=== PATIENT | male | born 1960 | race African-American/Black ===

== ENCOUNTER 2017-05-26 13:07 | Inpatient (IN) | payer OTHER ==
[2017-05-26 13:20] VITALS: BMI 21.6
[2017-05-26] MEDS ORDERED: ALBUTEROL SO4 2.5/IPRATROPIUM 0.5 INH SOL 3 ML VIAL.NEB. NEB ONE ×2 (13:26→14:17)
[2017-05-26] MEDS ORDERED: methylPREDNISolone NA SUCC 125 MG/2 ML VIAL IVPUSH ONE (13:26)
--- NOTE | 2017-05-26 13:26 | PDOC ---
History of Present Illness - General Chief Complaint: Shortness of Breath Stated Complaint: SOB Time Seen by Provider: 05/26/17 13:25 - History of Present Illness Initial Comments: 05/26/17 13:33 The patient is a 56 year old male with a history of DM, Lung CA who presents for evaluation of SOB and lower abdominal pain. The patient reports a 1 week history of worsening SOB with associated non-productive cough. He states that he was using his inhaler and home nebulizer with minimal relief in his symptoms , but ran out of medication 3 days ago. He reports that he currently on chemotherapy for his cancer with his last chemo 2 weeks ago. He also reports lower abdominal pain with an "bump" in his lower abdomen. He reports continued bowel movements and denies any nausea or vomiting. He denies fevers, chills, chest pain, or changes with urination or bowel movements. Past History - Past Medical History Allergies/Adverse Reactions: Allergies Allergy/AdvReac Type Severity Reaction Status Date / Time iodine Allergy Verified 03/16/16 09:13 Home Medications: Ambulatory Orders Albuterol Sulfate Inhaler - [Ventolin Hfa Inhaler -] 1 - 2 inh PO QID 05/26/17 Diazepam 10 mg PO DAILY 05/26/17 FENTANYL 12mcg PATCH [DURAGESIC 12mcg PATCH -] 1 each TD Q72H 05/26/17 Gabapentin 300 mg PO BID 05/26/17 Metformin HCl 500 mg PO BID 05/26/17 Omeprazole 20 mg PO DAILY 05/26/17 Oxycodone HCl 10 mg PO DAILY 05/26/17 Asthma: Yes COPD: No Diabetes: Yes - Suicide/Smoking/Psychosocial Hx Smoking History: Unknown if ever smoked Have you smoked in the past 12 months: Yes Number of Cigarettes Smoked Daily: 10 Information on smoking cessation initiated: No 'Breaking Loose' booklet given: 03/16/16 Hx Alcohol Use: No Drug/Substance Use Hx: No Substance Use Type: None Review of Systems - Review of Systems Comments:: 05/26/17 13:37 Constitutional: No fevers, chills, fatigue, malaise HEENT: No Rhinorrhea, nasal congestion, visual changes Cardiovascular: No chest pain, syncope, palpitations, lightheadedness Respiratory: SOB, cough. No Hemoptysis, Gastrointestinal: Abdominal pain. No Nausea, Vomiting, Constipation, Diarrhea, Melena Genitourinary: No Dysuria, Frequency, Urgency, Hesitancy, Hematuria, Flank pain Musculoskeletal: No Myalgia, arthralgia Skin: No rashes, bruising, pallor Neurologic: No Headache, Dizziness, Numbness, Weakness, or Tingling Psychiatric: No Hallucinations. No SI or HI *Physical Exam - Vital Signs Last Vital Signs Temp Pulse Resp BP Pulse Ox 129 H 24 133/82 89 L 05/26/17 13:17 05/26/17 13:17 05/26/17 13:17 05/26/17 13:17 - Physical Exam Comments: 05/26/17 13:39 General Appearance: Nourished. In Mild Apparent Distress HEENT: EOMI, MINDI. No Pharyngeal Erythema, Tonsillar Exudate, Tonsillar Erythema Neck: No Cervical Lymphadenopathy Respiratory/Chest: Diffuse bilateral crackles and expiratory wheezing noted on exam. No Rhonchi, Cardiovascular: Regular Rhythm, Regular Rate. No Murmur, Gallops, Rubs Gastrointestinal/Abdominal: Normal Bowel Sounds, Soft. Palpable right inguinal hernia with tenderness to palpation. No Guarding, Rebound, Musculoskeletal: No CVA Tenderness Extremity: Normal Capillary Refill Integumentary: Normal Color, Dry, Warm Neurologic: Fully Oriented, Alert, Normal Mood/Affect, Normal Response, ED Treatment Course - LABORATORY CBC & Chemistry Diagram: 05/26/17 11:40 05/26/17 11:40 Medical Decision Making - Medical Decision Making 05/26/17 13:40 The patient is a 56 year old male with a history of DM, Lung CA who presents for evaluation of SOB and lower abdominal pain. Differential includes but is not limited to: Asthma exacerbation, COPD exacerbation, pneumonia, hernia, infectious, metabolic derangement. Given the patient's physical exam, it is likely he is experiencing either an asthma excerbation or a COPD exacerbation. He also has an apparent inguinal hernia and could have an incacerated hernia contributing to his symptoms. We will obtain a cbc, cmp, bnp, lactate, chest plain film, and abdomen ct to evaluate further. We will treat the patient with iv fluids, solumedrol, and duonebs in the meantime. We will continue to monitor and reassess. *DC/Admit/Observation/Transfer Diagnosis at time of Disposition: COPD exacerbation Pneumonia Qualifiers: Pneumonia type: due to unspecified organism Laterality: unspecified laterality Lung location: unspecified part of lung Qualified Code(s): J18.9 - Pneumonia, unspecified organism - Discharge Dispostion Condition at time of disposition: Guarded Admit: Yes - Referrals - Patient Instructions - Post Discharge Activity
[2017-05-26] MEDS ORDERED: SODIUM CHLORIDE 1,000 ML IV STA ×2 (13:32→18:20)
--- NOTE | 2017-05-26 13:42 | PDOC ---
Attending Attestation - Resident Resident Name: Teddy Sutherland - ED Attending Attestation I have performed the following: I have examined & evaluated the patient, The case was reviewed & discussed with the resident, I agree w/resident's findings & plan, Exceptions are as noted - HPI HPI: 05/26/17 13:33 56 M with h/o lung CA (currently on chemo, last tx 2 weeks ago), asthma, presenting to ER with SOB x 1 week. Pt states that he feels like he is having an asthma attack. He states that he was using his albuterol pump and nebulizers earlier this week but ran out about 2 days ago. Pt denies any CP. Denies F/C. Endorses productive cough. Pt also reports that he is having pain in his R groin that started also about a week ago. He also noticed a protrusion in the same area. States that the pain is worse with standing and coughing. Denies any abdominal distention, denies N/ V. Is passing flatus and stool as normal. - Physicial Exam PE: 05/26/17 13:42 "GENERAL: Awake, alert, and fully oriented, in no acute distress HEAD: No signs of trauma EYES: PERRLA, EOMI, sclera anicteric, conjunctiva clear ENT: Auricles normal inspection, hearing grossly normal, nares patent, oropharynx clear without exudates. Moist mucosa NECK: Nontender, no stepoffs, Normal ROM, supple, no lymphadenopathy, JVD, or masses LUNGS: +expiratory wheezes, diffuse rales, no rhonchi HEART: Regular rate and rhythm, normal S1 and S2, no murmurs, rubs or gallops ABDOMEN: Soft, nontender, normoactive bowel sounds. No guarding, no rebound. No masses : + R inguinal mass tender to palpation, not able to reduce at bedside, no scrotal mass or tenderness EXTREMITIES: Normal range of motion, no edema. No clubbing or cyanosis. No cords, erythema, or tenderness NEUROLOGICAL: Cranial nerves II through XII intact. 5/5 strength and sensation in all extremities, Normal speech, normal gait SKIN: Warm, Dry, normal turgor, no rashes or lesions noted. " - Medical Decision Making 05/26/17 13:43 56 M with lung CA, asthma presenting to ER with SOB x 1 week. Wheezing on exam, consistent with asthma exacerbation. Pt also complaining of R inguinal pain, found to have mass consistent with inguinal hernia. Possible incarcerated hernia. No obstructive symptoms or clinical signs of obstruction. - Labs - CXR - CTAP - Nebs, steroids 05/26/17 17:31 CXR with consolidation. Pt started on HCAP coverage with vanc/zosyn/azithro. Pending CTAP to r/o incarcerated hernia. Lactate negative. Admitted to [facility].
[2017-05-26] MEDS ORDERED: methylPREDNISolone NA SUCC 125 MG/2 ML VIAL ONE (14:02)
[2017-05-26 14:32] LABS: BASO % 0.7 % (0-2.0); EOS % 0.2 % (0-4.5); HEMATOCRIT 27.8 % (35.4-49); HEMOGLOBIN 8.4 GM/dL (11.7-16.9); LYMPH % 6.2 % (8-40); MCH 25.5 pg (25.7-33.7); MCHC 30.1 g/dl (32.0-35.9); MEAN CELL VOLUME 84.7 fl (80-96); MEAN PLT VOLUME 7.5 fl (7.5-11.1); MONO % 5.6 % (3.8-10.2); NEUT % 87.3 % (42.8-82.8); PLATELET COUNT 147 K/MM3 (134-434); RBC 3.29 M/mm3 (4.00-5.60); RDW 26.4 % (11.9-15.9); WHITE BLOOD COUNT 12.5 K/mm3 (4.0-10.0)
[2017-05-26 14:48] LABS: ADD RBC MORPHOLOGY YES
[2017-05-26 14:57] LABS: ALBUMIN 2.3 g/dl (3.4-5.0); ANION GAP 7 (8-16); BILIRUBIN,TOTAL 0.3 mg/dL (0.2-1.0); BLOOD UREA NITROGEN 15 mg/dL (7-18); CALCIUM 7.5 mg/dL (8.5-10.1); CHLORIDE 108 mmol/L (98-107); CO2 28 mmol/L (21-32); CREATININE 0.6 mg/dL (0.7-1.3); GLUCOSE,RANDOM 78 mg/dL (74-106); LIPASE 34 U/L (73-393); SGOT/AST 13 U/L (15-37); SGPT/ALT 11 U/L (12-78); SODIUM 143 mmol/L (136-145); TOT PROT 6.3 g/dl (6.4-8.2)
[2017-05-26 14:59] LABS: ALK PHOS 84 U/L (45-117)
[2017-05-26] MEDS ORDERED: PIPERACILLIN/TAZOB 3.375 GM 50 ML IVPB ONE (17:10)
[2017-05-26] MEDS ORDERED: AZITHROMYCIN IVPB 500 MG in DEXTROSE 5%-WATER - 250 ML IVPB ONE (17:10)
[2017-05-26] MEDS ORDERED: VANCOMYCIN 1,250 MG in DEXTROSE 5%-WATER - 250 ML IVPB ONE (17:10)
--- NOTE | 2017-05-26 18:18 | PN ---
Teaching Attending Note Name of Resident: Linda June ATTENDING PHYSICIAN STATEMENT I saw and evaluated the patient. I reviewed the resident's note and discussed the case with the resident. I agree with the resident's findings and plan as documented. 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 Has been using his inhalers with no improvement. Denies any fevers, recent URI like illness, sick contacts, antibiotics, recent travel or hospitalization. Also report right sided groin pain for last 1 week, dull mainly with coughing, exertion or movements. no nausea, vomiting, abdominal pain or diarrhea, no prior h/o inguinal hernia. Currently feels better after receiving nebs and steroids in the ED. 12 point ROS neg except above, has been doing well otherwise. OBJECTIVE: Vital Signs Period Temp Pulse Resp BP Sys/Perales Pulse Ox Last 24 Hr 108-129 22-24 133/82 89-92 Intake & Output 05/23/17 05/24/17 05/25/17 05/26/17 23:59 23:59 23:59 23:59 Weight 142 lb GENERAL: Awake, alert, and fully oriented, no use of acessory muscles of respiration. HEAD: Normal with no signs of trauma. EYES: Pupils equal, round and reactive to light, extraocular movements intact, sclera anicteric, conjunctiva clear. No lid lag. EARS, NOSE, THROAT: Ears normal, nares patent, oropharynx clear without exudates. Mildly dry mucous membrane NECK: Normal range of motion, supple, no JVD LUNGS: decreased air entry bilateral with occasional whezing, markedly decreasd breath sounds left base with few rales above the same HEART: S1S2 regular, tachycardic ABDOMEN: Soft, no distended, tenderness right groin area with coughing noted, no bulging in groin or scrotal area noted, no voluntary or involuntary guarding or rigidity, positive bowel sounds MUSCULOSKELETAL: Normal range of motion at all joints. No bony deformities or tenderness. No CVA tenderness. UPPER EXTREMITIES: 2+ pulses, warm, well-perfused. No cyanosis. No clubbing. No peripheral edema. LOWER EXTREMITIES: 2+ pulses, warm, well-perfused. No calf tenderness. No peripheral edema. NEUROLOGICAL: Cranial nerves II-XII intact. Normal speech. Gait deferred PSYCHIATRIC: Cooperative. Good eye contact. Appropriate mood and affect. SKIN: Warm, dry, normal turgor, no rashes or lesions noted, normal capillary refill. Home Medication List Medication Instructions Recorded Confirmed Type Albuterol Sulfate Inhaler - 1 - 2 inh PO QID 05/26/17 05/26/17 History [Ventolin Hfa Inhaler -] Diazepam 10 mg PO DAILY 05/26/17 05/26/17 History FENTANYL 12mcg PATCH [DURAGESIC 1 each TD Q72H 05/26/17 05/26/17 History 12mcg PATCH -] Gabapentin 300 mg PO BID 05/26/17 05/26/17 History Metformin HCl 500 mg PO BID 05/26/17 05/26/17 History Omeprazole 20 mg PO DAILY 05/26/17 05/26/17 History Oxycodone HCl 10 mg PO DAILY 05/26/17 05/26/17 History Laboratory Results - last 24 hr 05/26/17 05/26/17 05/26/17 11:40 11:40 14:18 WBC 12.5 H D RBC 3.29 L D Hgb 8.4 L D Hct 27.8 L D MCV 84.7 MCH 25.5 L D MCHC 30.1 L RDW 26.4 H Plt Count 147 D MPV 7.5 D Neutrophils % 87.3 H D Lymphocytes % 6.2 L D Monocytes % 5.6 Eosinophils % 0.2 D Basophils % 0.7 Sodium 143 Potassium 4.0 Chloride 108 H Carbon Dioxide 28 Anion Gap 7 L BUN 15 Creatinine 0.6 L D Creat Clearance w eGFR > 60 Random Glucose 78 D Lactic Acid 1.0 Calcium 7.5 L Total Bilirubin 0.3 D AST 13 L ALT 11 L D Alkaline Phosphatase 84 D B-Natriuretic Peptide 165.50 H Total Protein 6.3 L Albumin 2.3 L D Lipase 34 L CXR- LLL consolidation with small pleural effusion EKG sinus tach 115, no acute ST-T changes ASSESSMENT AND PLAN: 56 yom with metastatic lung carcinoma to spine/pelvis on chemotherapy, asthma, prior heavy smoker, diet controlled DM, admitted with LLL PNA with pleural effusion, acute asthma exacerbation with hypoxia, right groin pain. -Acute LLL PNA with pleural effusion, cannot r/o post obstructive PNA -Acute asthma/?COPD exacerbation PNA with hypoxia -Sepsis -Right groin pain, ?hernia vs musculoskeletal from excessive coughing -Metastatic Lung carcinoma to spine/pelvis -Diet controlled DM Plan: Given immunocompromised state and possible post obstructive PNA, broad spectrum antibiotic coverage with zosyn/vancomycin. Atypical Coverage with Azithromycin. Blood/sputum cultures, influenza swab, urine PNA studies. Check CT Chest non contrast (given allergy to iodine, and current presentatation suggestive of infectious process/Asthma and less likely PE) ID consult, case discussed with Dr. Plaza. Solumedrol 40 mg IV q8h, standing nebs (monitor tachycardia). oxygen supplementation. Check ABG CT A/P to assess right groin pain, serial abdominal exams. Check urinalysis. Oncology consult. Diabetic diet, ISS. GI/DVTPPX, protonix/heparin code status: full, wants his Ronda Rivas to be HCP. Dispo anticipate atleast 3-4 midnight stays, given need for IV antibiotics, steroids, respiratory treatment and close hemodynamic monitoring and additional treatment. Admit to inpatient. Plan discussed with patient in detail, all questions answered. Total admit time 55 min.
[2017-05-26] MEDS ORDERED: ALBUTEROL SO4 0.083% IH SOL 2.5 MG/3 ML VIAL.NEB. NEB PRN (18:26)
[2017-05-26] MEDS ORDERED: AZITHROMYCIN IVPB 250 ML IVPB ONE (18:29)
[2017-05-26] MEDS ORDERED: SODIUM CHLORIDE 1,000 ML IV SCH (18:30)
[2017-05-26 18:33] LABS: ANISOCYTOSIS 3+
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
[2017-05-26] MEDS ORDERED: FENTANYL PATCH WASTE TD PRN (20:00)
[2017-05-26] MEDS ORDERED: fentaNYL 12mcg/hr PATCH.TD72 TD SCH (20:00)
[2017-05-26] MEDS: SODIUM CHLORIDE 1,000 ML IV SCH (21:37)
[2017-05-26] MEDS: PIPERACILLIN/TAZOB 3.375 GM 3.375 GM in DEXTROSE 5%-WATER - 100 ML IVPB SCH (21:55)
[2017-05-26] MEDS: VANCOMYCIN 1,000 MG in DEXTROSE 5%-WATER - 250 ML IVPB SCH (22:00)
[2017-05-27] MEDS: ALBUTEROL SO4 2.5/IPRATROPIUM 0.5 INH SOL 3 ML VIAL.NEB. NEB SCH ×5 (00:40→23:01)
[2017-05-27] MEDS: methylPREDNISolone NA SUCC 40 MG/1 ML VIAL IVPUSH SCH ×3 (02:11→12:20)
[2017-05-27] MEDS: PIPERACILLIN/TAZOB 3.375 GM 3.375 GM in DEXTROSE 5%-WATER - 100 ML IVPB SCH ×3 (02:39→21:49)
[2017-05-27] MEDS: HEPARIN NA (PORCINE) 5,000 UNITS/ML 1ML VIAL SQ SCH ×4 (06:00→21:51)
[2017-05-27] MEDS: INSULIN SLIDING SCALE (NOVOLOG) 1 VIAL SQ SCH ×4 (06:25→21:56)
[2017-05-27 06:57] LABS: HEMATOCRIT 32.5 % (35.4-49); MCHC 30.9 g/dl (32.0-35.9); MEAN CELL VOLUME 84.1 fl (80-96); MEAN PLT VOLUME 7.8 fl (7.5-11.1); PLATELET COUNT 238 K/MM3 (134-434); RBC 3.86 M/mm3 (4.00-5.60); RDW 26.4 % (11.9-15.9); WHITE BLOOD COUNT 16.3 K/mm3 (4.0-10.0)
[2017-05-27 07:27] LABS: ALBUMIN 2.4 g/dl (3.4-5.0); ANION GAP 6 (8-16); BLOOD UREA NITROGEN 15 mg/dL (7-18); CALCIUM 7.7 mg/dL (8.5-10.1); CHLORIDE 107 mmol/L (98-107); CO2 28 mmol/L (21-32); GLUCOSE,RANDOM 114 mg/dL (74-106); MAGNESIUM 2.2 mg/dL (1.8-2.4); POTASSIUM 4.4 mmol/L (3.5-5.1); SODIUM 141 mmol/L (136-145)
[2017-05-27 07:31] LABS: ALK PHOS 86 U/L (45-117); BILIRUBIN,TOTAL 0.2 mg/dL (0.2-1.0); CREATININE 0.7 mg/dL (0.7-1.3); PHOSPHOROUS 2.5 mg/dL (2.5-4.9); SGOT/AST 15 U/L (15-37); SGPT/ALT 11 U/L (12-78); TOT PROT 6.6 g/dl (6.4-8.2)
[2017-05-27] MEDS ORDERED: PT OWN MED DRAWER 7, Y5N ONE ×4 (09:01→19:52)
[2017-05-27] MEDS: oxyCODONE HCL 5 MG TABLET PO SCH (09:04)
[2017-05-27 09:53] LABS: URINE APPEARANCE CLEAR; URINE BILIRUBIN NEGATIVE (NEGATIVE); URINE BLOOD NEGATIVE (NEGATIVE); URINE COLOR LTYELLOW; URINE GLUCOSE (UA) NEGATIVE (NEGATIVE); URINE KETONE NEGATIVE (NEGATIVE); URINE LEUK ESTERASE NEGATIVE (NEGATIVE); URINE NITRITE NEGATIVE (NEGATIVE); URINE PROTEIN NEGATIVE (NEGATIVE); URINE UROBILINOGEN NEGATIVE mg/dL (0.2-1.0)
--- NOTE | 2017-05-27 10:06 | CON.ID ---
Consult Consult Specialty:: Infectious Disease Reason for Consultation:: PNA - History of Present Illness History of Present Illness: This is a 56 y.o. 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 COPD previously a smoker x 40 yrs presenting with c/o shortness of breath, occasionally productive of whitish sputum. He states that the shortness of breath started about 1 wk ago and has not used his asthma inhaler. Denies fever/chills, hemoptysis. He is also c/o Rt inguinal pain that began 1 wk ago. Denies n/v/d. CXR reveals Lt basilar infiltrate and small pleural effusion. Currently states he is feeling a bit better. 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: No: Alzheimer's, CVA, Dementia, Migraine, Multiple Sclerosis, Peripheral Neuropathy, Parkinson's, Seizure, Syncope, TIA, Vertigo, Other Cardio/Vascular: No: AFIB, Aneurysm, Aortic Insufficiency, Aortic Stenosis, CAD , CHF, Deep Vein Thrombosis, HTN, Hyperlipdemia, [place], Mitral Insufficiency, Mitral Stenosis, Murmur, Pulmonary Hypertension, Other Pulmonary: Yes: Asthma Gastrointestinal: No: Ascites, Cancer, Constipation, Crohn's Disease, Diverticulitis, Diverticulosis, Esophageal Varices, Gastritis, GERD, GI Bleed, Hemorrhoids, Hiatal Hernia, Inflamatory Bowel Disease, Irritable Bowel Disease, Pancreatitis, Peptic Ulcer Disease, Ulcerative Colitis, Other Hepatobiliary: No: Cirrhosis, Cholelithiasis, Cholecystitis, Choledocholithiasis , Hepatitis A, Hepatitis B, Hepatitis C, Other Renal/: No: Renal Failure, Renal Inusuff, BPH, Cancer, Hematuria, Hemodialysis , Neurogenic Bladder, Renal Calculi, UTI, Other Heme/Onc: Yes: Cancer (lung with spinal and pelvic metastasis), Current Chemotherapy Infectious Disease: No: AIDS, C-Diff, Herpes Zoster, HIV, MRSA, STD's, Tuberculosis, VREF, Other Psych: No: Addictions, Anxiety, Bipolar, Depression, Panic, Psychosis, Schizophrenia, Other Musculoskeletal: No: Bursitis, Chronic low back pain, Hemiparesis, Hemiplegia, Osteoarthritis, Paraplegia, Other Rheumatology: No: Fibromyalgia, Gout, Lupus, Rheumatoid Arthritis, Sarcoidosis, Vasculitis, Other ENT: No: Allergic Rhinitis, Sinusitis, Other Endocrine: Yes: Diabetes Mellitus. No: Alice's Disease, Venessa's Disease, Diabetes Insipidus, Hyperparathyroidism, Hyperthyroidism, Hypothyroidism, Osteopenia, SIADH, Other Dermatology: No: Basal Cell, Cellulitis, Eczema, Melanoma, Psoriasis, Squamous Cell, Other - Past Surgical History Past Surgical History: No: None, AAA Repair, AICD, Amputation, Appendectomy, Arthrosocopy, AV Fistula/Graft, Bariatric Surgery, Breast Biopsy, Bypass, CABG, Carotid Endarterectomy, Cataract Removal, Cholecystectomy, Colectomy, Colonoscopy, Colostomy, Craniotomy, , Cystectomy, Hernia Repair, Hysterectomy, Ileal Conduit, Ileosotomy, Joint Replacement, Kidney Transplant, Laminectomy, Liver Transplant, Mastectomy, Nephrectomy, Oopherectomy, Orchiectomy, Permanent Pacemaker, Prostatectomy, Splenectomy, Stent, Thoracotomy , TURP, Tonsillectomy, Tubal Ligation, Upper Endoscopy, Valve Replacement, Vasectomy, Vein Stripping/Ligation - Alcohol/Substance Use Hx Alcohol Use: No History of Substance Use: reports: None - Smoking History Smoking history: Former smoker Have you smoked in the past 12 months: Yes Aproximately how many cigarettes per day: 10 - Social History History of Recent Travel: No Home Medications - Allergies Allergies/Adverse Reactions: Allergies Allergy/AdvReac Type Severity Reaction Status Date / Time iodine Allergy Verified 05/26/17 20:43 - Home Medications Home Medications: Ambulatory Orders Albuterol Sulfate Inhaler - [Ventolin Hfa Inhaler -] 1 - 2 inh PO QID 05/26/17 Diazepam 10 mg PO DAILY 05/26/17 FENTANYL 12mcg PATCH [DURAGESIC 12mcg PATCH -] 1 each TD Q72H 05/26/17 Gabapentin 300 mg PO BID 05/26/17 Metformin HCl 500 mg PO BID 05/26/17 Omeprazole 20 mg PO DAILY 05/26/17 Oxycodone HCl 10 mg PO DAILY 05/26/17 Review of Systems - Review of Systems Constitutional: reports: No Symptoms Eyes: reports: No Symptoms HENT: reports: No Symptoms Neck: denies: No Symptoms, Decreased ROM, Lumps, Pain on Movement, Stiffness, Swollen Glands, Tenderness, Other Cardiovascular: reports: Shortness of Breath Respiratory: reports: SOB Genitourinary: reports: No Symptoms Musculoskeletal: reports: No Symptoms Integumentary: reports: No Symptoms Neurological: reports: No Symptoms Endocrine: reports: No Symptoms Hematology/Lymphatic: reports: No Symptoms Psychiatric: reports: No Symptoms Physical Exam Vital Signs: Vital Signs Temperature 97.8 F 05/27/17 06:00 Pulse Rate 91 H 05/27/17 06:00 Respiratory Rate 20 05/27/17 06:00 Blood Pressure 118/89 05/27/17 06:00 O2 Sat by Pulse Oximetry (%) 92 L 05/26/17 21:08 Constitutional: Yes: No Distress, Calm Eyes: Yes: WNL HENT: Yes: WNL Neck: Yes: WNL Cardiovascular: Yes: Regular Rate and Rhythm Respiratory: Yes: CTA Bilaterally Gastrointestinal: Yes: Normal Bowel Sounds, Soft ...Rectal Exam: Yes: Deferred Renal/: Yes: WNL Musculoskeletal: Yes: WNL Extremities: Yes: WNL Integumentary: Yes: WNL Neurological: Yes: Alert, Oriented Labs: CBC, BMP 05/27/17 06:30 05/27/17 06:30 Imaging - Results Chest X-ray: Report Reviewed (Lt base consolidation/infiltrate, small Lt pleural effusion) Problem List - Problems (1) COPD exacerbation Code(s): J44.1 - CHRONIC OBSTRUCTIVE PULMONARY DISEASE W (ACUTE) EXACERBATION (2) Pneumonia Code(s): J18.9 - PNEUMONIA, UNSPECIFIED ORGANISM Qualifiers: Pneumonia type: due to unspecified organism Laterality: unspecified laterality Lung location: unspecified part of lung Qualified Code(s): J18.9 - Pneumonia, unspecified organism Assessment/Plan 56 y.o. male with Lung CA with Mets to spine/pelvis on chemotherapy and s/p RT , COPD, presenting with shortness of breath x 1 wk, as well as Rt groin pain Lt basilar PNA COPD exacerbation Rt inguinal pain - continue Zosyn/Vancomycin/Azithromycin for now - collect sputum for culture - urinary antigens - wbc increased, on steroids - CT Chest/Abd/pelvis pending will f/u Thank you
[2017-05-27] MEDS: BISACODYL 5 MG TABLET.DR (FP) PO SCH (11:38)
[2017-05-27] MEDS: PANTOPRAZOLE 40 MG TABLET (FP) PO SCH (11:39)
--- NOTE | 2017-05-27 11:40 | PN ---
Teaching Attending Note Name of Resident: . ATTENDING PHYSICIAN STATEMENT SUBJECTIVE: Patient seen and examined, Breathing with some improvement, no new fevers/ chills or symptoms, overall feels better. Still with right groin pain but better. OBJECTIVE: Vital Signs Period Temp Pulse Resp BP Sys/Perales Pulse Ox Last 24 Hr 97.8 F-98.2 F 91-129 20-24 118-133/77-89 89-92 Intake & Output 05/24/17 05/25/17 05/26/17 05/27/17 23:59 23:59 23:59 23:59 Intake Total 400 Balance 400 Weight 142 lb General: sitting in bed eating, no acute distress CVS;S1s2 regular Chest: few left basilar and right middle rales, decreased breath sound right base, distant breath sounds consistent with emphysema? Abdomen: soft, NT, ND, positive bowel sounds extremities; no edema Home Medication List Medication Instructions Recorded Confirmed Type Albuterol Sulfate Inhaler - 1 - 2 inh PO QID 05/26/17 05/26/17 History [Ventolin Hfa Inhaler -] Diazepam 10 mg PO DAILY 05/26/17 05/26/17 History FENTANYL 12mcg PATCH [DURAGESIC 1 each TD Q72H 05/26/17 05/26/17 History 12mcg PATCH -] Gabapentin 300 mg PO BID 05/26/17 05/26/17 History Metformin HCl 500 mg PO BID 05/26/17 05/26/17 History Omeprazole 20 mg PO DAILY 05/26/17 05/26/17 History Oxycodone HCl 10 mg PO DAILY 05/26/17 05/26/17 History Active Medications Generic Name Dose Route Start Last Admin Trade Name Obedq PRN Reason Stop Dose Admin Albuterol Sulfate 1 amp 05/26/17 18:26 Ventolin 0.083% Nebulizer Soln - NEB Q4H PRN SHORT OF BREATH/WHEEZING Albuterol/Ipratropium 1 amp 05/27/17 00:00 05/27/17 06:00 Duoneb - NEB Not Given QIDR GER[facility]IMO Bisacodyl 5 mg 05/27/17 10:00 05/27/17 11:38 Dulcolax - PO 5 mg DAILY GER[facility]IMO Administration Fentanyl 1 patch 05/26/17 20:00 05/26/17 22:00 Duragesic 12mcg Patch - TD Not Given Q72H GERONIMO Heparin Sodium (Porcine) 5,000 unit 05/26/17 22:00 05/27/17 06:26 Heparin - SQ 5,000 unit TID GERONIMO Administration Azithromycin 500 mg/ Dextrose 250 mls @ 250 mls/hr 05/27/17 10:00 IVPB DAILY GERONIMO Sodium Chloride 1,000 mls @ 100 mls/hr 05/26/17 19:19 05/26/17 21:37 Normal Saline - IV Not Given ASDIR [facility]ERON[facility] Vancomycin HCl 1,000 mg/ 250 mls @ 166.667 mls/hr 05/27/17 22:00 Dextrose IVPB BID GERONIMO Piperacillin Sod/Tazobactam 100 mls @ 200 mls/hr 05/26/17 21:00 05/27/17 09: 04 Sod 3.375 gm/ Dextrose IVPB 05/27/17 15:29 200 mls/hr Q6H-IV [facility] Administration Insulin Aspart 1 vial 05/26/17 22:00 05/27/17 11:33 Novolog Vial Sliding Scale - SQ Not Given ACHS [facility] Protocol Methylprednisolone Sodium Succinate 40 mg 05/27/17 02:00 05/27/17 09:44 Solu-Medrol - IVPUSH 40 mg Q8H-IV [facility] Administration Miscellaneous 1 each 05/26/17 20:00 Duragesic Patch Waste TD 06/02/17 19:59 PRN PRN Oxycodone HCl 10 mg 05/27/17 10:00 05/27/17 09:04 Roxicodone - PO 10 mg DAILY [facility] Administration Pantoprazole Sodium 40 mg 05/27/17 10:00 05/27/17 11:39 Protonix - PO 40 mg DAILY [facility] Administration Piperacillin/Tazobactam/Dextrose 3.375 gm 05/27/17 11:45 Zosyn 3.375gm Ivpb (Premix) IVPB Q6H-IV [facility] Laboratory Results - last 24 hr 05/26/17 05/26/17 05/26/17 11:40 11:40 14:18 WBC 12.5 H D RBC 3.29 L D Hgb 8.4 L D Hct 27.8 L D MCV 84.7 MCH 25.5 L D MCHC 30.1 L RDW 26.4 H Plt Count 147 D MPV 7.5 D Neutrophils % 87.3 H D Lymphocytes % 6.2 L D Monocytes % 5.6 Eosinophils % 0.2 D Basophils % 0.7 Hypochromia 2+ Polychromasia 1+ Poikilocytosis 2+ Anisocytosis 3+ Microcytosis 1+ Fragmented RBCs 1+ Sodium 143 Potassium 4.0 Chloride 108 H Carbon Dioxide 28 Anion Gap 7 L BUN 15 Creatinine 0.6 L D Creat Clearance w eGFR > 60 POC Glucometer Random Glucose 78 D Hemoglobin A1c % Lactic Acid 1.0 Calcium 7.5 L Phosphorus Magnesium Ferritin Total Bilirubin 0.3 D AST 13 L ALT 11 L D Alkaline Phosphatase 84 D B-Natriuretic Peptide 165.50 H Total Protein 6.3 L Albumin 2.3 L D Lipase 34 L Urine Color Urine Appearance Urine pH Ur Specific [place] Urine Protein Urine Glucose (UA) Urine Ketones Urine Blood Urine Nitrite Urine Bilirubin Urine Urobilinogen Ur Leukocyte Esterase 05/26/17 05/27/17 05/27/17 18:49 06:24 06:30 WBC 16.3 H D RBC 3.86 L Hgb 10.0 L D Hct 32.5 L D MCV 84.1 MCH 26.0 MCHC 30.9 L RDW 26.4 H Plt Count 238 D MPV 7.8 Neutrophils % Lymphocytes % Monocytes % Eosinophils % Basophils % Hypochromia Polychromasia Poikilocytosis Anisocytosis Microcytosis Fragmented RBCs Sodium Potassium Chloride Carbon Dioxide Anion Gap BUN Creatinine Creat Clearance w eGFR POC Glucometer 128 Random Glucose Hemoglobin A1c % Lactic Acid Calcium Phosphorus Magnesium Ferritin 467.144 H Total Bilirubin AST ALT Alkaline Phosphatase B-Natriuretic Peptide Total Protein Albumin Lipase Urine Color Urine Appearance Urine pH Ur Specific [place] Urine Protein Urine Glucose (UA) Urine Ketones Urine Blood Urine Nitrite Urine Bilirubin Urine Urobilinogen Ur Leukocyte Esterase 05/27/17 05/27/17 05/27/17 06:30 06:30 09:05 WBC RBC Hgb Hct MCV MCH MCHC RDW Plt Count MPV Neutrophils % Lymphocytes % Monocytes % Eosinophils % Basophils % Hypochromia Polychromasia Poikilocytosis Anisocytosis Microcytosis Fragmented RBCs Sodium 141 Potassium 4.4 Chloride 107 Carbon Dioxide 28 Anion Gap 6 L BUN 15 Creatinine 0.7 Creat Clearance w eGFR > 60 POC Glucometer Random Glucose 114 H D Hemoglobin A1c % 5.4 Lactic Acid Calcium 7.7 L Phosphorus 2.5 Magnesium 2.2 Ferritin Total Bilirubin 0.2 D AST 15 ALT 11 L Alkaline Phosphatase 86 B-Natriuretic Peptide Total Protein 6.6 Albumin 2.4 L Lipase Urine Color Ltyellow Urine Appearance Clear Urine pH 6.0 Ur Specific [place] 1.015 Urine Protein Negative Urine Glucose (UA) Negative Urine Ketones Negative Urine Blood Negative Urine Nitrite Negative Urine Bilirubin Negative Urine Urobilinogen Negative Ur Leukocyte Esterase Negative Microbiology 05/26/17 18:01 Nasopharyngeal Swab Influenza Types A,B Antigen (NETTA) - Final 05/26/17 18:01 Nasopharyngeal Swab - Final CT chest/A/P results pending ASSESSMENT AND PLAN: 56 yom with metastatic lung carcinoma to spine/pelvis on chemotherapy, asthma, prior heavy smoker, diet controlled DM, admitted with LLL PNA with pleural effusion, acute asthma exacerbation with hypoxia, right groin pain. -Acute LLL PNA with pleural effusion, cannot r/o post obstructive PNA -Acute asthma/?COPD exacerbation PNA with hypoxia -Sepsis -Right groin pain, ?hernia vs musculoskeletal from excessive coughing -Metastatic Lung carcinoma to spine/pelvis -Diet controlled DM Plan: Given immunocompromised state and possible post obstructive PNA, broad spectrum antibiotic coverage with zosyn/vancomycin. Atypical Coverage with Azithromycin. Blood/sputum cultures, influenza swab, urine PNA studies. Follow up CT Chest ID consult appreciated Decrease Solumedrol to 40 mg IV q12h, standing nebs (monitor tachycardia). oxygen supplementation. Will check VBG for baseline. CT A/P to assess right groin pain, serial abdominal exams. u/a neg. Oncology consult, discussed with Dr. Rivers (covering for Dr. Lopez), Dr. Lopez to see in AM. Diabetic diet, ISS. GI/DVTPPX, protonix/heparin code status: full, wants his Ronda Rivas to be HCP. dispo pending resolution of active medical issues.
[2017-05-27] MEDS: VANCOMYCIN 1,000 MG in DEXTROSE 5%-WATER - 250 ML IVPB SCH ×2 (12:11→22:29)
[2017-05-27] MEDS: PIPERACIL/TAZOB 3.375 GM 3.375 GM/50 ML PREMIX IVPB SCH ×2 (12:21→16:42)
[2017-05-27] MEDS: AZITHROMYCIN IVPB 500 MG in DEXTROSE 5%-WATER - 250 ML IVPB SCH (14:30)
--- NOTE | 2017-05-27 15:08 | PN ---
Progress Note (short form) - Note Progress Note: PULMONARY CONSULTATION DICTATED 05/27/17 IMP LLL CONSOLIDATION LIKELY PNEUMONIA BILATERAL PLEURAL EFFUSIONS ASTHMA METASTATIC LUNG CA WITH SPINAL /BONE METS NIDDM PLAN BROAD SPECTRUM ANTIBIOTICS INHALED BRONCHODILATORS STEROIDS O2 CULTURES DIAGNOSTIC THORACENTESIS LEFT PLEURA EFFUSION R/O PARAPNEUMONIC,MALIGNANT DR WILLINGHAM Problem List - Problems (1) Asthma Code(s): J45.909 - UNSPECIFIED ASTHMA, UNCOMPLICATED (2) COPD exacerbation Code(s): J44.1 - CHRONIC OBSTRUCTIVE PULMONARY DISEASE W (ACUTE) EXACERBATION (3) Pneumonia Code(s): J18.9 - PNEUMONIA, UNSPECIFIED ORGANISM Qualifiers: Pneumonia type: due to unspecified organism Laterality: unspecified laterality Lung location: unspecified part of lung Qualified Code(s): J18.9 - Pneumonia, unspecified organism (4) Lung cancer Code(s): C34.90 - MALIGNANT NEOPLASM OF UNSP PART OF UNSP BRONCHUS OR LUNG (5) Diabetes Code(s): E11.9 - TYPE 2 DIABETES MELLITUS WITHOUT COMPLICATIONS (6) Dyspnea Code(s): R06.00 - DYSPNEA, UNSPECIFIED
--- NOTE | 2017-05-27 15:55 | CONS ---
DATE OF CONSULTATION: 05/27/2017 REFERRING PHYSICIAN: Desmond Julian MD The patient is a 56-year-old black male with past history of asthma for many years, history of lung CA, non-small cell, diagnosed in 2016, with metastasis to the spine and pelvis, status post RT and chemo, [id number] diabetes mellitus, GERD, admitted to [facility] with complaint of shortness of breath, occasional productive cough for the past week. Patient states he started developing increasing shortness of breath about a week ago. He did not have his inhaler, which usually alleviates his symptoms. His symptoms continued to worsen, at which time he presented to the emergency room. He also complained of right inguinal pain approximately a week ago. He presented to the emergency room with the above. In the ER, chest x-ray performed, which revealed left basal infiltrate and a right pleural effusion. He underwent a CT scan of the chest, which revealed bilateral upper lobe, right middle lobe patchy infiltrates and consolidation and atelectasis, right base, and small pleural effusion, and a consolidation of the left lower lobe with moderate pleural effusion. He has also had extensive bony metastasis. The patient was admitted. He was started on inhaled bronchodilators as well as broad-spectrum antibiotics. He denies any recent travel. 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 Denies any hemoptysis. He does have weight loss. Denies any night sweats. Denies any fevers or chills. Past medical history, again, includes lung CA, with spinal bone metastasis, status post RT and chemotherapy, currently receiving chemotherapy under the care of Dr. Lin, asthma, and afj-mzoohja-fkxonpwrb diabetes mellitus. REVIEW OF SYSTEMS: Positive cough, positive shortness of breath, positive wheeze. No chest pain. No palpitation. No abdominal pain. Current medications include Duragesic patch, Solu-Medrol, Zithromax, Zosyn, vancomycin, heparin, albuterol, DuoNeb, Duragesic, Roxicodone, and Protonix. PHYSICAL EXAMINATION: General: The patient is a thin black male, awake, alert, in no acute distress. Vital Signs: He is currently afebrile. Blood pressure 117/79. Respiratory rate 16. O2 saturation is 93% on 2 L. HEENT: Normocephalic, atraumatic. Neck: Supple. Heart: Regular, S1, S2. Chest: Rhonchi, wheezes bilaterally. Abdomen: Soft. Bowel sounds are positive. Extremities: No cyanosis, edema. LABORATORY DATA: WBC is 16.3, hemoglobin 10, hematocrit 32.5, platelet count of 238,000. BUN 15, creatinine 0.7. Chest CT as noted earlier. IMPRESSION: 1. Pneumonia, left lower lobe. Left lower lobe consolidation, likely pneumonia. Cannot exclude possible underlying mass. 2. History of metastatic lung cancer with spinal and bone metastasis. 3. Asthma exacerbation. 4. Fxu-jlyaefj-nlvshtxud diabetes mellitus. PLAN: IV steroids, inhaled bronchodilator, supplemental O2, broad-spectrum antibiotics. Will get a thoracentesis of left pleural effusion to rule out possible parapneumonic, as well as a malignant etiology. Obtain followup chest x-rays, cultures. ROSEMARY WILLINGHAM M.D. [id number]
[2017-05-27] MEDS: SODIUM CHLORIDE 1,000 ML IV SCH (18:25)
[2017-05-28] MEDS: methylPREDNISolone NA SUCC 40 MG/1 ML VIAL IVPUSH SCH ×2 (00:08→12:26)
[2017-05-28] MEDS: PIPERACILLIN/TAZOB 3.375 GM 3.375 GM in DEXTROSE 5%-WATER - 100 ML IVPB SCH ×4 (02:16→21:24)
[2017-05-28] MEDS: INSULIN SLIDING SCALE (NOVOLOG) 1 VIAL SQ SCH ×5 (06:29→22:03)
[2017-05-28] MEDS: HEPARIN NA (PORCINE) 5,000 UNITS/ML 1ML VIAL SQ SCH ×3 (06:31→21:48)
[2017-05-28] MEDS: ALBUTEROL SO4 2.5/IPRATROPIUM 0.5 INH SOL 3 ML VIAL.NEB. NEB SCH ×3 (06:33→17:38)
[2017-05-28 08:38] LABS: BASO % 0.1 % (0-2.0); HEMOGLOBIN 8.3 GM/dL (11.7-16.9); LYMPH % 3.7 % (8-40); MCH 25.1 pg (25.7-33.7); MCHC 29.7 g/dl (32.0-35.9); MEAN CELL VOLUME 84.7 fl (80-96); MONO % 3.4 % (3.8-10.2); NEUT % 92.8 % (42.8-82.8); PLATELET COUNT 171 K/MM3 (134-434); RDW 27.3 % (11.9-15.9); WHITE BLOOD COUNT 14.9 K/mm3 (4.0-10.0)
[2017-05-28 09:00] LABS: CHLORIDE 111 mmol/L (98-107); POTASSIUM 4.2 mmol/L (3.5-5.1); SODIUM 143 mmol/L (136-145)
[2017-05-28] MEDS: BISACODYL 5 MG TABLET.DR (FP) PO SCH (09:05)
[2017-05-28] MEDS: PANTOPRAZOLE 40 MG TABLET (FP) PO SCH (09:05)
[2017-05-28] MEDS: oxyCODONE HCL 5 MG TABLET PO SCH (09:06)
[2017-05-28 09:07] LABS: ALBUMIN 2.1 g/dl (3.4-5.0); ALK PHOS 65 U/L (45-117); ANION GAP 8 (8-16); BILIRUBIN,TOTAL 0.2 mg/dL (0.2-1.0); BLOOD UREA NITROGEN 12 mg/dL (7-18); CALCIUM 7.1 mg/dL (8.5-10.1); CO2 24 mmol/L (21-32); CREATININE 0.5 mg/dL (0.7-1.3); GLUCOSE,RANDOM 107 mg/dL (74-106); MAGNESIUM 2.5 mg/dL (1.8-2.4); PHOSPHOROUS 1.7 mg/dL (2.5-4.9); SGOT/AST 9 U/L (15-37); SGPT/ALT 8 U/L (12-78); TOT PROT 5.6 g/dl (6.4-8.2)
[2017-05-28] MEDS: AZITHROMYCIN IVPB 500 MG in DEXTROSE 5%-WATER - 250 ML IVPB SCH (09:08)
[2017-05-28] MEDS: SODIUM CHLORIDE 1,000 ML IV SCH (09:14)
--- NOTE | 2017-05-28 11:07 | PN ---
Progress Note (short form) - Note Progress Note: PULMONARY States breathing is better today. Sputum now yellow/cream colored. No fevers or chills. CT chest reviewed, bilateral effusions with LLL infiltrate/atelectasis. Last Vital Signs Temp Pulse Resp BP Pulse Ox 98.7 F 96 H 20 129/80 93 L 05/28/17 07:53 05/28/17 07:53 05/28/17 07:53 05/28/17 07:53 05/27/17 21:00 Gen: NAD at rest Heart: RRR Lung: decreased breath sounds left base Abd: soft, nontender Ext: no edema CBC, BMP 05/28/17 07:00 05/28/17 07:00 Active Medications Albuterol Sulfate (Ventolin 0.083% Nebulizer Soln -) 1 amp NEB Q4H PRN PRN Reason: SHORT OF BREATH/WHEEZING Albuterol/Ipratropium (Duoneb -) 1 amp NEB QIDR [facility] Last Admin: 05/28/17 06:33 Dose: 1 amp Bisacodyl (Dulcolax -) 5 mg PO DAILY [facility] Last Admin: 05/28/17 09:05 Dose: 5 mg Fentanyl (Duragesic 12mcg Patch -) 1 patch TD Q72H [facility] Last Admin: 05/26/17 22:00 Dose: Not Given Heparin Sodium (Porcine) (Heparin -) 5,000 unit SQ TID [facility] Last Admin: 05/28/17 06:31 Dose: 5,000 unit Azithromycin 500 mg/ Dextrose 250 mls @ 250 mls/hr IVPB DAILY [facility] Last Admin: 05/28/17 09:08 Dose: 250 mls/hr Sodium Chloride (Normal Saline -) 1,000 mls @ 100 mls/hr IV ASDIR [facility] Last Admin: 05/28/17 09:14 Dose: 100 mls/hr Vancomycin HCl 1,000 mg/ (Dextrose) 250 mls @ 166.667 mls/hr IVPB BID [facility] Last Admin: 05/27/17 22:29 Dose: 166.667 mls/hr Piperacillin Sod/Tazobactam (Sod 3.375 gm/ Dextrose) 100 mls @ 200 mls/hr IVPB Q6H-IV [facility] Last Admin: 05/28/17 10:20 Dose: 200 mls/hr Insulin Aspart (Novolog Vial Sliding Scale -) 1 vial SQ ACHS [facility] PRN Reason: Protocol Last Admin: 05/28/17 06:29 Dose: Not Given Methylprednisolone Sodium Succinate (Solu-Medrol -) 40 mg IVPUSH Q12H [facility] Last Admin: 05/28/17 00:08 Dose: 40 mg Miscellaneous (Duragesic Patch Waste) 1 each TD PRN PRN Stop: 06/02/17 19:59 Oxycodone HCl (Roxicodone -) 10 mg PO DAILY [facility] Last Admin: 05/28/17 09:06 Dose: 10 mg Pantoprazole Sodium (Protonix -) 40 mg PO DAILY [facility] Last Admin: 05/28/17 09:05 Dose: 40 mg A/P LLL Pneumonia Pleural Effusion Metastatic Lung Ca with bone mets on chemotherapy Asthma DM - continue antibiotics - f/u cultures - effusions likely reactive but agree with diagnostic left thoracentesis as pt on chemotherapy - continue medrol at current dose - inhaled bronchodilators - O2 to keep SpO2 >90% - DVT prophylaxis
--- NOTE | 2017-05-28 11:20 | CONSULT ---
Consult Consult Specialty:: general surgery Referred by:: Iesha BLOCK Reason for Consultation:: right inguinal hernia - History of Present Illness Chief Complaint: Painful right groin hernia History of Present Illness: 56yo PMH Asthma, DM type 2, Lung cancer metastasized to the spine/pelvic on chemotherapy currently (Diagnosed 2015), presented with worsening shortness of breath that started one week ago associated with a productive cough with clear sputum. Patient also complains of right sided groin pain that started one week ago as well and describes the pain as dull and non radiating. He reports that its worse when he coughs, laughs, sneezes, lifts objects and himself. It is relieved when he holds the right groin area and lays down. Patient denies any previous abdominal surgery, or being aware of an inguinal hernia in the past. 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: Alzheimer's, CVA, Dementia, Migraine, Multiple Sclerosis, Peripheral Neuropathy, Parkinson's, Seizure, Syncope, TIA, Vertigo, Other Cardio/Vascular: No: AFIB, Aneurysm, Aortic Insufficiency, Aortic Stenosis, CAD , CHF, Deep Vein Thrombosis, HTN, Hyperlipdemia, MS, Mitral Insufficiency, Mitral Stenosis, Murmur, Pulmonary Hypertension, Other Pulmonary: Yes: Asthma Gastrointestinal: No: Ascites, Cancer, Constipation, Crohn's Disease, Diverticulitis, Diverticulosis, Esophageal Varices, Gastritis, GERD, GI Bleed, Hemorrhoids, Hiatal Hernia, Inflamatory Bowel Disease, Irritable Bowel Disease, Pancreatitis, Peptic Ulcer Disease, Ulcerative Colitis, Other Hepatobiliary: No: Cirrhosis, Cholelithiasis, Cholecystitis, Choledocholithiasis , Hepatitis A, Hepatitis B, Hepatitis C, Other Renal/: No: Renal Failure, Renal Inusuff, BPH, Cancer, Hematuria, Hemodialysis , Neurogenic Bladder, Renal Calculi, UTI, Other Infectious Disease: No: AIDS, C-Diff, Herpes Zoster, HIV, MRSA, STD's, Tuberculosis, VREF, Other Psych: No: Addictions, Anxiety, Bipolar, Depression, Panic, Psychosis, Schizophrenia, Other Musculoskeletal: No: Bursitis, Chronic low back pain, Hemiparesis, Hemiplegia, Osteoarthritis, Paraplegia, Other Rheumatology: No: Fibromyalgia, Gout, Lupus, Rheumatoid Arthritis, Sarcoidosis, Vasculitis, Other ENT: No: Allergic Rhinitis, Sinusitis, Other Endocrine: Yes: Diabetes Mellitus. No: Gamal's Disease, Venessa's Disease, Diabetes Insipidus, Hyperparathyroidism, Hyperthyroidism, Hypothyroidism, Osteopenia, SIADH, Other Dermatology: No: Basal Cell, Cellulitis, Eczema, Melanoma, Psoriasis, Squamous Cell, Other - Past Surgical History Past Surgical History: No: None, AAA Repair, AICD, Amputation, Appendectomy, Arthrosocopy, AV Fistula/Graft, Bariatric Surgery, Breast Biopsy, Bypass, CABG, Carotid Endarterectomy, Cataract Removal, Cholecystectomy, Colectomy, Colonoscopy, Colostomy, Craniotomy, , Cystectomy, Hernia Repair, Hysterectomy, Ileal Conduit, Ileosotomy, Joint Replacement, Kidney Transplant, Laminectomy, Liver Transplant, Mastectomy, Nephrectomy, Oopherectomy, Orchiectomy, Permanent Pacemaker, Prostatectomy, Splenectomy, Stent, Thoracotomy , TURP, Tonsillectomy, Tubal Ligation, Upper Endoscopy, Valve Replacement, Vasectomy, Vein Stripping/Ligation - Alcohol/Substance Use Hx Alcohol Use: No History of Substance Use: reports: None - Smoking History Smoking history: Former smoker Have you smoked in the past 12 months: Yes Aproximately how many cigarettes per day: 10 - Social History History of Recent Travel: No Home Medications - Allergies Allergies/Adverse Reactions: Allergies Allergy/AdvReac Type Severity Reaction Status Date / Time iodine Allergy Verified 05/26/17 20:43 - Home Medications Home Medications: Ambulatory Orders Albuterol Sulfate Inhaler - [Ventolin Hfa Inhaler -] 1 - 2 inh PO QID 05/26/17 Diazepam 10 mg PO DAILY 05/26/17 FENTANYL 12mcg PATCH [DURAGESIC 12mcg PATCH -] 1 each TD Q72H 05/26/17 Gabapentin 300 mg PO BID 05/26/17 Metformin HCl 500 mg PO BID 05/26/17 Omeprazole 20 mg PO DAILY 05/26/17 Oxycodone HCl 10 mg PO DAILY 05/26/17 Celecoxib [Celebrex] 100 mg PO BID PRN 05/28/17 Dronabinol 2.5 mg PO BID 05/28/17 Tizanidine HCl 2 mg PO Q8H 05/28/17 Review of Systems - Review of Systems Constitutional: reports: Weakness. denies: Chills, Fever, Loss of Appetite Eyes: denies: Blurred Vision, Recent Change in Vision HENT: denies: Difficult Swallowing, Throat Pain Neck: denies: Lumps, Swollen Glands, Tenderness Cardiovascular: denies: Chest Pain, Palpitations Respiratory: reports: Cough, Orthopnea, SOB, SOB on Exertion, Wheezing Gastrointestinal: denies: Abdominal Pain, Constipation, Diarrhea Genitourinary: reports: Other (right groin tenderness). denies: Discharge, Dysuria, Testicular Pain, Testicular Swelling Musculoskeletal: denies: Muscle Pain, Muscle Weakness Integumentary: denies: Lesions, Rash Neurological: denies: Change in LOC, Change in Speech Endocrine: denies: Unexplained Weight Gain, Unexplained Weight Loss Psychiatric: denies: Anxiety, Depression Physical Exam Vital Signs: Vital Signs Temperature 98.7 F 05/28/17 07:53 Pulse Rate 96 H 05/28/17 07:53 Respiratory Rate 20 05/28/17 07:53 Blood Pressure 129/80 05/28/17 07:53 O2 Sat by Pulse Oximetry (%) 93 L 05/27/17 21:00 Vital Signs Period Temp Pulse Resp BP Sys/Perales Pulse Ox Last 24 Hr 97.7 F-98.7 F 96-103 16-20 117-129/79-80 93 Constitutional: Yes: No Distress, Calm, Cachectic, Thin Eyes: Yes: Conjunctiva Clear, EOM Intact HENT: Yes: Atraumatic, Normocephalic Neck: Yes: Supple, Trachea Midline Cardiovascular: Yes: Regular Rate and Rhythm, S1, S2. No: Murmur Respiratory: Yes: Regular, Rhonchi (L > R), SOB Gastrointestinal: Yes: Normal Bowel Sounds, Soft ...Rectal Exam: Yes: Deferred Renal/: Yes: Other (RIGHT GROIN HAS REPRODUCIBLE IMPULSE AT EXTERNAL RING. NO ASSCIATED TESTICULAR ABNORMALITY). No: CVA Tenderness - Left, CVA Tenderness - Right Musculoskeletal: No: Muscle Pain, Muscle Weakness Extremities: No: Cool, Cyanosis Edema: No Peripheral Pulses WNL: Yes Integumentary: No: Jaundice, Rash Neurological: Yes: Alert, Oriented ...Motor Strength: WNL Psychiatric: Yes: Alert, Oriented Labs: CBC, BMP 05/28/17 07:00 05/28/17 07:00 Microbiology 05/27/17 09:05 Sputum - Expectorated Gram Stain - Final 05/27/17 16:50 Urine For Antigen Detection Legionella Antigen - Final 05/27/17 16:50 Urine For Antigen Detection Streptococcus pneumoniae Antigen (M - Final 05/26/17 18:49 Blood - Peripheral Venous Blood Culture - Preliminary NO GROWTH OBTAINED AFTER 24 HOURS, INCUBATION TO CONTINUE FOR 4 DAYS. 05/26/17 18:49 Blood - Peripheral Venous Blood Culture - Preliminary NO GROWTH OBTAINED AFTER 24 HOURS, INCUBATION TO CONTINUE FOR 4 DAYS. 05/26/17 18:01 Nasopharyngeal Swab Influenza Types A,B Antigen (NETTA) - Final 05/26/17 18:01 Nasopharyngeal Swab - Final Imaging - Results Chest X-ray: Report Reviewed, Image Reviewed (LEFT LOWER LOBE MASS AND PLEURAL EFFUSION FAT CONTAINING RIGHT INGUINAL HERNIA) Cat Scan: Report Reviewed, Image Reviewed Problem List - Problems (1) Non-recurrent inguinal hernia of right side Assessment/Plan: 56yo male MMP including lung cancer on chemotherapy Non-recurrent Right inguinal hernia, without intestinal obstruction Non-operative management is Continue chemotherapy Inguinal Hernia Truss Support Avoid heavy lifting >15lbs Adequate analgesia Follow-up with Dr. Moralez, [facility] 6 week after last chemotherapy Thank you for the opportunity to participate in the care of this patient. Code(s): K40.90 - UNIL INGUINAL HERNIA, W/O OBST OR GANGR, NOT SPCF RECUR (2) Asthma Code(s): J45.909 - UNSPECIFIED ASTHMA, UNCOMPLICATED (3) COPD exacerbation Code(s): J44.1 - CHRONIC OBSTRUCTIVE PULMONARY DISEASE W (ACUTE) EXACERBATION (4) Diabetes Code(s): E11.9 - TYPE 2 DIABETES MELLITUS WITHOUT COMPLICATIONS (5) Lung cancer Code(s): C34.90 - MALIGNANT NEOPLASM OF UNSP PART OF UNSP BRONCHUS OR LUNG
[2017-05-28] MEDS ORDERED: NAPH,MB-DB/K PH,MBDB POWDER PACKET PO ONE (11:27)
--- NOTE | 2017-05-28 12:04 | PN ---
Progress Note, Physician History of Present Illness: patient feeling better breathing better surgery on case for hernia - Current Medication List Current Medications: Active Medications Albuterol Sulfate (Ventolin 0.083% Nebulizer Soln -) 1 amp NEB Q4H PRN PRN Reason: SHORT OF BREATH/WHEEZING Albuterol/Ipratropium (Duoneb -) [address] [facility] Last Admin: 05/28/17 06:33 Dose: 1 amp Bisacodyl (Dulcolax -) [address] [facility] Last Admin: 05/28/17 09:05 Dose: 5 mg Fentanyl (Duragesic 12mcg Patch -) [address] [facility] Last Admin: 05/26/17 22:00 Dose: Not Given Heparin Sodium (Porcine) (Heparin -) 5,[address] [facility] Last Admin: 05/28/17 06:31 Dose: 5,000 unit Sodium Chloride (Normal Saline -) 1,000 mls @ 100 mls/hr IV ASDIR [facility] Last Admin: 05/28/17 09:14 Dose: 100 mls/hr Vancomycin HCl 1,000 mg/ (Dextrose) 250 mls @ 166.667 mls/hr IVPB BID [facility] Last Admin: 05/27/17 22:29 Dose: 166.667 mls/hr Piperacillin Sod/Tazobactam (Sod 3.375 gm/ Dextrose) 100 mls @ 200 mls/hr IVPB Q6H-IV [facility] Last Admin: 05/28/17 10:20 Dose: 200 mls/hr Insulin Aspart (Novolog Vial Sliding Scale -) [address] [facility] PRN Reason: Protocol Last Admin: 05/28/17 06:29 Dose: Not Given Methylprednisolone Sodium Succinate (Solu-Medrol -) [address] [facility] Last Admin: 05/28/17 00:08 Dose: 40 mg Miscellaneous (Duragesic Patch Waste) 1 each TD PRN PRN Stop: 06/02/17 19:59 Oxycodone HCl (Roxicodone -) [address] [facility] Last Admin: 05/28/17 09:06 Dose: 10 mg Pantoprazole Sodium (Protonix -) [address] [facility] Last Admin: 05/28/17 09:05 Dose: 40 mg - Objective Vital Signs: Vital Signs Temperature 98.7 F 05/28/17 07:53 Pulse Rate 96 H 05/28/17 07:53 Respiratory Rate 20 05/28/17 07:53 Blood Pressure 129/80 05/28/17 07:53 O2 Sat by Pulse Oximetry (%) 93 L 05/27/17 21:00 Constitutional: Yes: Calm, Mild Distress Cardiovascular: Yes: Regular Rate and Rhythm Respiratory: Yes: Regular, CTA Bilaterally, Other (crackles) Gastrointestinal: Yes: Normal Bowel Sounds, Soft Musculoskeletal: Yes: WNL Extremities: Yes: WNL Neurological: Yes: Alert, Oriented Psychiatric: Yes: Alert, Oriented Labs: CBC, BMP 05/28/17 07:00 05/28/17 07:00 Assessment/Plan Problem List - Problems (1) COPD exacerbation Code(s): J44.1 - CHRONIC OBSTRUCTIVE PULMONARY DISEASE W (ACUTE) EXACERBATION (2) Pneumonia Code(s): J18.9 - PNEUMONIA, UNSPECIFIED ORGANISM Qualifiers: Pneumonia type: due to unspecified organism Laterality: unspecified laterality Lung location: unspecified part of lung Qualified Code(s): J18.9 - Pneumonia, unspecified organism rt ing hernia metastatic lung cancer plan continue abx will stop zithro incentive corine rest as per primary and surgery
[2017-05-28] MEDS: VANCOMYCIN 1,000 MG in DEXTROSE 5%-WATER - 250 ML IVPB SCH ×2 (12:25→21:49)
[2017-05-28] MEDS ORDERED: oxyCODONE HCL 5 MG TABLET PO PRN (13:23)
--- NOTE | 2017-05-28 14:32 | PN ---
Teaching Attending Note Name of Resident: Jaden Mcneill ATTENDING PHYSICIAN STATEMENT Time of evaluation: 11:20AM I saw and evaluated the patient. I reviewed the resident's note and discussed the case with the resident. I agree with the resident's findings and plan as documented. SUBJECTIVE: Patient seen and examined. breathing improved, some right groin, no new complaints. OBJECTIVE: Vital Signs Period Temp Pulse Resp BP Sys/Perales Pulse Ox Last 24 Hr 97.7 F-98.7 F 96-106 16-20 117-129/69-80 93-99 Intake & Output 05/25/17 05/26/17 05/27/17 05/28/17 23:59 23:59 23:59 23:59 Intake Total 2291 1150 Output Total 1100 400 Balance 1191 750 Weight 142 lb General: lying in bed in no acute distress Chest: distant breath sounds, few basilar rales, positive air entry Extermities: no edema Abdomen :soft, right groin tenderness, no reducible hernia noted, ND, positive bowel sounds Back: no spinal tenderness Home Medication List Medication Instructions Recorded Confirmed Type Albuterol Sulfate Inhaler - 1 - 2 inh PO QID 05/26/17 05/26/17 History [Ventolin Hfa Inhaler -] Diazepam 10 mg PO DAILY 05/26/17 05/26/17 History FENTANYL 12mcg PATCH [DURAGESIC 1 each TD Q72H 05/26/17 05/26/17 History 12mcg PATCH -] Gabapentin 300 mg PO BID 05/26/17 05/26/17 History Metformin HCl 500 mg PO BID 05/26/17 05/26/17 History Omeprazole 20 mg PO DAILY 05/26/17 05/26/17 History Oxycodone HCl 10 mg PO DAILY 05/26/17 05/26/17 History Celecoxib [Celebrex] 100 mg PO BID PRN 05/28/17 05/28/17 History Dronabinol 2.5 mg PO BID 05/28/17 05/28/17 History Tizanidine HCl 2 mg PO Q8H 05/28/17 05/28/17 History Active Medications Generic Name Dose Route Start Last Admin Trade Name Freq PRN Reason Stop Dose Admin Albuterol Sulfate 1 amp 05/26/17 18:26 Ventolin 0.083% Nebulizer Soln - NEB Q4H PRN SHORT OF BREATH/WHEEZING Albuterol/Ipratropium 1 amp 05/27/17 00:00 05/28/17 11:45 Duoneb - NEB 1 amp QIDR [facility] Administration Bisacodyl 5 mg 05/27/17 10:00 05/28/17 09:05 Dulcolax - PO 5 mg DAILY G[facility] Administration Fentanyl 1 patch 05/26/17 20:00 05/26/17 22:00 Duragesic 12mcg Patch - TD Not Given Q72H GERONIMO Heparin Sodium (Porcine) 5,000 unit 05/26/17 22:00 05/28/17 06:31 Heparin - SQ 5,000 unit TID GERONIMO Administration Sodium Chloride 1,000 mls @ 100 mls/hr 05/26/17 19:19 05/28/17 09:14 Normal Saline - IV 100 mls/hr ASDIR [facility] Administration Vancomycin HCl 1,000 mg/ 250 mls @ 166.667 mls/hr 05/27/17 22:00 05/28/17 12: 25 Dextrose IVPB 166.667 mls/hr BID [facility] Administration Piperacillin Sod/Tazobactam 100 mls @ 200 mls/hr 05/27/17 21:00 05/28/17 10: 20 Sod 3.375 gm/ Dextrose IVPB 200 mls/hr Q6H-IV [facility] Administration Insulin Aspart 1 vial 05/26/17 22:00 05/28/17 12:23 Novolog Vial Sliding Scale - SQ Not Given ACHS [facility] Protocol Methylprednisolone Sodium Succinate 40 mg 05/27/17 12:00 05/28/17 12:26 Solu-Medrol - IVPUSH 40 mg Q12H [facility] Administration Miscellaneous 1 each 05/26/17 20:00 Duragesic Patch Waste TD 06/02/17 19:59 PRN PRN Oxycodone HCl 10 mg 05/28/17 13:23 Roxicodone - PO Q6H PRN Pain 6-10 Pantoprazole Sodium 40 mg 05/27/17 10:00 05/28/17 09:05 Protonix - PO 40 mg DAILY [facility] Administration Laboratory Results - last 24 hr 05/26/17 05/27/17 05/27/17 18:49 16:48 21:53 WBC RBC Hgb Hct MCV MCH MCHC RDW Plt Count MPV Neutrophils % Lymphocytes % Monocytes % Eosinophils % Basophils % Sodium Potassium Chloride Carbon Dioxide Anion Gap BUN Creatinine Creat Clearance w eGFR POC Glucometer 236 113 Random Glucose Calcium Phosphorus Magnesium Iron Cancelled TIBC Cancelled Iron Saturation Cancelled Total Bilirubin AST ALT Alkaline Phosphatase Total Protein Albumin 05/28/17 05/28/17 05/28/17 06:29 07:00 07:00 WBC 14.9 H RBC 3.30 L Hgb 8.3 L D Hct 28.0 L MCV 84.7 MCH 25.1 L MCHC 29.7 L RDW 27.3 H Plt Count 171 D MPV 8.0 Neutrophils % 92.8 H Lymphocytes % 3.7 L D Monocytes % 3.4 L Eosinophils % 0.0 D Basophils % 0.1 Sodium 143 Potassium 4.2 Chloride 111 H Carbon Dioxide 24 Anion Gap 8 BUN 12 Creatinine 0.5 L D Creat Clearance w eGFR > 60 POC Glucometer 130 Random Glucose 107 H Calcium 7.1 L Phosphorus 1.7 L D Magnesium 2.5 H Iron TIBC Iron Saturation Total Bilirubin 0.2 AST 9 L D ALT 8 L D Alkaline Phosphatase 65 D Total Protein 5.6 L Albumin 2.1 L 05/28/17 12:20 WBC RBC Hgb Hct MCV MCH MCHC RDW Plt Count MPV Neutrophils % Lymphocytes % Monocytes % Eosinophils % Basophils % Sodium Potassium Chloride Carbon Dioxide Anion Gap BUN Creatinine Creat Clearance w eGFR POC Glucometer 108 Random Glucose Calcium Phosphorus Magnesium Iron TIBC Iron Saturation Total Bilirubin AST ALT Alkaline Phosphatase Total Protein Albumin Microbiology 05/27/17 09:05 Sputum - Expectorated Gram Stain - Final 05/27/17 16:50 Urine For Antigen Detection Legionella Antigen - Final 05/27/17 16:50 Urine For Antigen Detection Streptococcus pneumoniae Antigen (M - Final 05/26/17 18:49 Blood - Peripheral Venous Blood Culture - Preliminary NO GROWTH OBTAINED AFTER 24 HOURS, INCUBATION TO CONTINUE FOR 4 DAYS. 05/26/17 18:49 Blood - Peripheral Venous Blood Culture - Preliminary NO GROWTH OBTAINED AFTER 24 HOURS, INCUBATION TO CONTINUE FOR 4 DAYS. 05/26/17 18:01 Nasopharyngeal Swab Influenza Types A,B Antigen (NETTA) - Final 05/26/17 18:01 Nasopharyngeal Swab - Final CT chest results reviewed ASSESSMENT AND PLAN: 56 yom with metastatic lung carcinoma to spine/pelvis on chemotherapy, asthma, prior heavy smoker, diet controlled DM, admitted with LLL PNA with pleural effusion, acute asthma exacerbation with hypoxia, right groin pain. -Acute multifocal PNA with bilateral pleural effusion -Acute asthma/?COPD exacerbation PNA with hypoxia -Sepsis -Tiny fat containing inguinal hernia -Metastatic Lung carcinoma to spine/pelvis -Diet controlled DM Plan: Given immunocompromised state, broad spectrum antibiotic coverage with zosyn/ vancomycin. ID input noted, Azithromycin d/linnette. Follow up Blood/sputum cultures. Influenza swab/urine PNA studies neg. CT chest noted. Pulmonary input appreciated. Plan for diagnostic thoracentesis. Solumedrol to 40 mg IV q12h, standing nebs (monitor tachycardia). oxygen supplementation. Transition to Prednisone in AM if respiratory status continues to improve. Surgery consulted with Dr. Moralez for fat containing inguinal hernia, input appreciated. Oncology consulted, discussed with Dr. Lin over the weekend, patient has been on taxotere/Cyramza. Has metastatic lung cancer to spine and pelvis, recently with also C-spine mets. Will follow up with him for additional recs. Diabetic diet, ISS. GI/DVTPPX, protonix/heparin code status: full, wants his Ronda Rivas to be HCP. dispo pending resolution of active medical issues.
[2017-05-28] MEDS ORDERED: PT OWN MED DRAWER 7, Y5N ONE ×2 (15:25→21:18)
--- NOTE | 2017-05-28 17:03 | PN ---
Physical Exam: SUBJECTIVE: Patient seen and examined earlier in morning. No events overnight. No complaints today. Pt reports still having some pain in R groin with cough or sitting up. OBJECTIVE: Vital Signs Period Temp Pulse Resp BP Sys/Perales Pulse Ox Last 24 Hr 97.4 F-98.7 F 96-106 20-20 127-129/69-87 93-99 GENERAL: NAD, awake, alert, and fully oriented HEENT: NC/AT, No JVD, sclera anicteric, NAMAN, EOMI, moist mucosa with normal structures of mouth, earrings noted LUNGS: Diminished sounds at lung bases with slight rhoncherous sounds R>L. No accessory muscle use HEART: Tachycardic with regular rhythm, normal S1 and S2 without murmur, rub or gallop. ABDOMEN: Soft, slight tenderness to palpation on R inguinal area, nondistended, normoactive bowel sounds, no guarding, no masses. No hepatomegaly. No bulging noted in the scrotal or groin region. Femoral pulses 2+ bilaterally EXTREMITIES: No peripheral edema. 2+ DP pulses, no calf tenderness PSYCHIATRIC: Cooperative. Good eye contact. Appropriate mood and affect. SKIN: Warm, dry, no rashes or lesions noted, normal capillary refill. Laboratory Results - last 24 hr 05/26/17 05/26/17 05/27/17 18:49 20:50 16:48 WBC RBC Hgb Hct MCV MCH MCHC RDW Plt Count MPV Neutrophils % Lymphocytes % Monocytes % Eosinophils % Basophils % Sodium Potassium Chloride Carbon Dioxide Anion Gap BUN Creatinine Creat Clearance w eGFR POC Glucometer 236 Random Glucose Calcium Phosphorus Magnesium Iron Cancelled TIBC Cancelled Iron Saturation Cancelled Total Bilirubin AST ALT Alkaline Phosphatase Total Protein Albumin M.pneumoniae IgM Titer <770 05/27/17 05/28/17 05/28/17 21:53 06:29 07:00 WBC 14.9 H RBC 3.30 L Hgb 8.3 L D Hct 28.0 L MCV 84.7 MCH 25.1 L MCHC 29.7 L RDW 27.3 H Plt Count 171 D MPV 8.0 Neutrophils % 92.8 H Lymphocytes % 3.7 L D Monocytes % 3.4 L Eosinophils % 0.0 D Basophils % 0.1 Sodium Potassium Chloride Carbon Dioxide Anion Gap BUN Creatinine Creat Clearance w eGFR POC Glucometer 113 130 Random Glucose Calcium Phosphorus Magnesium Iron TIBC Iron Saturation Total Bilirubin AST ALT Alkaline Phosphatase Total Protein Albumin M.pneumoniae IgM Titer 05/28/17 05/28/17 07:00 12:20 WBC RBC Hgb Hct MCV MCH MCHC RDW Plt Count MPV Neutrophils % Lymphocytes % Monocytes % Eosinophils % Basophils % Sodium 143 Potassium 4.2 Chloride 111 H Carbon Dioxide 24 Anion Gap 8 BUN 12 Creatinine 0.5 L D Creat Clearance w eGFR > 60 POC Glucometer 108 Random Glucose 107 H Calcium 7.1 L Phosphorus 1.7 L D Magnesium 2.5 H Iron TIBC Iron Saturation Total Bilirubin 0.2 AST 9 L D ALT 8 L D Alkaline Phosphatase 65 D Total Protein 5.6 L Albumin 2.1 L M.pneumoniae IgM Titer Active Medications Generic Name Dose Route Start Last Admin Trade Name Freq PRN Reason Stop Dose Admin Albuterol Sulfate 1 amp 05/26/17 18:26 Ventolin 0.083% Nebulizer Soln - NEB Q4H PRN SHORT OF BREATH/WHEEZING Albuterol/Ipratropium 1 amp 05/27/17 00:00 05/28/17 11:45 Duoneb - NEB 1 amp QIDR G[facility]IMO Administration Bisacodyl 5 mg 05/27/17 10:00 05/28/17 09:05 Dulcolax - PO 5 mg DAILY G[facility]IMO Administration Fentanyl 1 patch 05/26/17 20:00 05/26/17 22:00 Duragesic 12mcg Patch - TD Not Given Q72H GER[facility]IMO Heparin Sodium (Porcine) 5,000 unit 05/26/17 22:00 05/28/17 16:30 Heparin - SQ Not Given TID GERONIMO Sodium Chloride 1,000 mls @ 100 mls/hr 05/26/17 19:19 05/28/17 09:14 Normal Saline - IV 100 mls/hr ASDIR GER[facility]IMO Administration Vancomycin HCl 1,000 mg/ 250 mls @ 166.667 mls/hr 05/27/17 22:00 05/28/17 12: 25 Dextrose IVPB 166.667 mls/hr BID G[facility] Administration Piperacillin Sod/Tazobactam 100 mls @ 200 mls/hr 05/27/17 21:00 05/28/17 15: 31 Sod 3.375 gm/ Dextrose IVPB 200 mls/hr Q6H-IV [facility] Administration Insulin Aspart 1 vial 05/26/17 22:00 05/28/17 12:23 Novolog Vial Sliding Scale - SQ Not Given ACHS [facility] Protocol Methylprednisolone Sodium Succinate 40 mg 05/27/17 12:00 05/28/17 12:26 Solu-Medrol - IVPUSH 40 mg Q12H G[facility]IMO Administration Miscellaneous 1 each 05/26/17 20:00 Duragesic Patch Waste TD 06/02/17 19:59 PRN PRN Oxycodone HCl 10 mg 05/28/17 13:23 05/28/17 16:30 Roxicodone - PO 10 mg Q6H PRN Administration Pain 6-10 Pantoprazole Sodium 40 mg 05/27/17 10:00 05/28/17 09:05 Protonix - PO 40 mg DAILY GER[facility]IMO Administration ASSESSMENT/PLAN: 56 yo M who presented for shortness of breath and was found to be hypoxic with CXR revealing LLL PNA. 1) Sepsis Secondary to Left Lower Lobe Pneumonia --Continue Zosyn 3.375 q6h --Continue Vancomycin 1gm BID --Continue Zithromax 500mg Daily --Chest CT shows b/l pleural effusions with b/l upper lobe and right middle lobe patchy infiltrates and a minimal pericardial effusion --Pulmonology on board --Thoracentesis for effusions; pleural studies to be sent on fluid --Strep pneumo negative; Legionella negative; Flu Negative; BCx negative x2 2) Acute Asthma/COPD Exacerbation with Hypoxia -Likely 2/2 infectious process with aspects of reactive airway disease -- SpO2 to maintain 02 sat >90% -Continue MEdrol 40mg IVP q12h --Continue Duonebs QID --Continue Albuterol q4h PRN 3) R Inguinal Hernia --2/2 to increased coughing --CT ABD showing hernia with only fat involved without any stranding noted --Surgery consult --Defer to outpatient elective repair noted --Monitor for signs of skin changes and/or increasing pain at rest 4) Lung Ca with mets to spine and pelvis --Consult Dr. Lin (hem-onc) --Next scheduled chemotherapy for 05/31/17 with last radiation 2 mo ago --Confirmed with pharmacy: Fentanyl patch 75mcg, Oxycodone 10mg q6h PRN --Currently pt is on Fentanyl 12.5, however has good pain control; can uptitrate as needed however reluctant to change currently --Continue Dulcolax 5mg qDaily 5) DM --Type II --BGM --ISS due to steroid use FEN: Fluids: NS @ 100cc/hr Electrolyte Abnormalities: Hypophosphetemia (repleted NaK-phos packet); HyperCl (monitor; 2/2 to Ns most likely) Nutrition: Diabetic Controlled diet PPX DVT - Heparin SQ TID; high risk due to hypercoaguable state from Ca GI - Protonix 40mg qDaily due to steroid use Code Status: Full code; would like to HCP Dispo: Continue current M/S management Case discussed with Dr. Iesha Mcneill, DO - Internal Medicine PGY-1 Visit type - Emergency Visit Emergency Visit: No - New Patient This patient is new to me today: No - Critical Care Critical Care patient: No
[2017-05-28 17:18] LABS: PROTHROMBIN TIME (PATIENT) 11.3 SEC (9.98-11.88)
--- NOTE | 2017-05-28 20:05 | CONSULT ---
Consult Consult Specialty:: Hematology-Oncology Referred by:: Neftaly Reason for Consultation:: SOB,cough ; Lung cancer - History of Present Illness Chief Complaint: 56 y/o male w hx metastatic adenocarcinoma lung on systemic Rx presenting w increased SOB/cough/phlegm History of Present Illness: 56 y/o Male w hx adenocarcinoma lung (primary likely a 1.7 cm lesion along L major fissure ) with extensive bony mets s/p RT to lower spine , Rx w chemoRx most recently on Taxotere/Cyramza and Xgeva who also has a chronic pain syndrome on oxyIR 10-20 mg q4-6h round the clock and fentanyl 150mcg/hr q3d . Pt recently developed neck pain ; MRI C-spine showing bony mets but no compression. Pt was due to have another body scan to assess disease status. Now pt presents w cough/clear phlegm X 4 days/increasing SOB/NUÑEZ X 2 weeks and pain R groin and L side neck. Pt had CT c/a/p which showed patchy infiltrates on the R and consolidation /atelectasis/pleural effusion on L ; extensive spine /hip mets/sternum. Pt placed on broad spectrum ab's , bronchodilators for probable pneumonia and L thoracentesis being considered . Pt also found to have R inguinal hernia w fat , no emergent surgery at this time . 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: No: Alzheimer's, CVA, Dementia, Migraine, Multiple Sclerosis, Peripheral Neuropathy, Parkinson's, Seizure, Syncope, TIA, Vertigo, Other Cardio/Vascular: No: AFIB, Aneurysm, Aortic Insufficiency, Aortic Stenosis, CAD , CHF, Deep Vein Thrombosis, HTN, Hyperlipdemia, IL, Mitral Insufficiency, Mitral Stenosis, Murmur, Pulmonary Hypertension, Other Pulmonary: Yes: Asthma, COPD Gastrointestinal: No: Ascites, Cancer, Constipation, Crohn's Disease, Diverticulitis, Diverticulosis, Esophageal Varices, Gastritis, GERD, GI Bleed, Hemorrhoids, Hiatal Hernia, Inflamatory Bowel Disease, Irritable Bowel Disease, Pancreatitis, Peptic Ulcer Disease, Ulcerative Colitis, Other Hepatobiliary: No: Cirrhosis, Cholelithiasis, Cholecystitis, Choledocholithiasis , Hepatitis A, Hepatitis B, Hepatitis C, Other Renal/: No: Renal Failure, Renal Inusuff, BPH, Cancer, Hematuria, Hemodialysis , Neurogenic Bladder, Renal Calculi, UTI, Other Heme/Onc: Yes: Anemia, Cancer, Current Chemotherapy Infectious Disease: No: AIDS, C-Diff, Herpes Zoster, HIV, MRSA, STD's, Tuberculosis, VREF, Other Psych: No: Addictions, Anxiety, Bipolar, Depression, Panic, Psychosis, Schizophrenia, Other Musculoskeletal: Yes: Other (chronic spinal pain). No: Bursitis, Chronic low back pain, Hemiparesis, Hemiplegia, Osteoarthritis, Paraplegia Rheumatology: No: Fibromyalgia, Gout, Lupus, Rheumatoid Arthritis, Sarcoidosis, Vasculitis, Other ENT: No: Allergic Rhinitis, Sinusitis, Other Endocrine: Yes: Diabetes Mellitus. No: Lamberton's Disease, Sigourney's Disease, Diabetes Insipidus, Hyperparathyroidism, Hyperthyroidism, Hypothyroidism, Osteopenia, SIADH, Other Dermatology: No: Basal Cell, Cellulitis, Eczema, Melanoma, Psoriasis, Squamous Cell, Other - Past Surgical History Past Surgical History: No: None, AAA Repair, AICD, Amputation, Appendectomy, Arthrosocopy, AV Fistula/Graft, Bariatric Surgery, Breast Biopsy, Bypass, CABG, Carotid Endarterectomy, Cataract Removal, Cholecystectomy, Colectomy, Colonoscopy, Colostomy, Craniotomy, , Cystectomy, Hernia Repair, Hysterectomy, Ileal Conduit, Ileosotomy, Joint Replacement, Kidney Transplant, Laminectomy, Liver Transplant, Mastectomy, Nephrectomy, Oopherectomy, Orchiectomy, Permanent Pacemaker, Prostatectomy, Splenectomy, Stent, Thoracotomy , TURP, Tonsillectomy, Tubal Ligation, Upper Endoscopy, Valve Replacement, Vasectomy, Vein Stripping/Ligation - Alcohol/Substance Use Hx Alcohol Use: No History of Substance Use: reports: None - Smoking History Smoking history: Former smoker Have you smoked in the past 12 months: Yes Aproximately how many cigarettes per day: 10 - Social History History of Recent Travel: No Home Medications - Allergies Allergies/Adverse Reactions: Allergies Allergy/AdvReac Type Severity Reaction Status Date / Time iodine Allergy Verified 05/26/17 20:43 - Home Medications Home Medications: Ambulatory Orders Albuterol Sulfate Inhaler - [Ventolin Hfa Inhaler -] 1 - 2 inh PO QID 05/26/17 Diazepam 10 mg PO DAILY 05/26/17 FENTANYL 12mcg PATCH [DURAGESIC 12mcg PATCH -] 1 each TD Q72H 05/26/17 Gabapentin 300 mg PO BID 05/26/17 Metformin HCl 500 mg PO BID 05/26/17 Omeprazole 20 mg PO DAILY 05/26/17 Oxycodone HCl 10 mg PO DAILY 05/26/17 Celecoxib [Celebrex] 100 mg PO BID PRN 05/28/17 Dronabinol 2.5 mg PO BID 05/28/17 Tizanidine HCl 2 mg PO Q8H 05/28/17 Review of Systems - Review of Systems Constitutional: reports: Loss of Appetite, Malaise, Unintentional Wgt. Loss Eyes: reports: No Symptoms HENT: reports: No Symptoms Neck: reports: Pain on Movement, Stiffness (L side) Cardiovascular: reports: No Symptoms Respiratory: reports: Cough, SOB, SOB on Exertion, Wheezing. denies: No Symptoms, Exercise Intolerance, Hemoptysis, Orthopnea, PND, Snoring, Other Gastrointestinal: reports: No Symptoms Genitourinary: reports: Other (swelling R groin, painful) Breasts: reports: No Symptoms Reported Musculoskeletal: reports: Back Pain (chronic, mild at this time) Integumentary: reports: No Symptoms Neurological: reports: No Symptoms Endocrine: reports: No Symptoms Hematology/Lymphatic: reports: No Symptoms Psychiatric: reports: Anxiety Physical Exam Vital Signs: Vital Signs Temperature 97.4 F L 05/28/17 15:25 Pulse Rate 100 H 05/28/17 15:25 Respiratory Rate 20 05/28/17 15:25 Blood Pressure 127/87 05/28/17 15:25 O2 Sat by Pulse Oximetry (%) 99 05/28/17 13:52 Constitutional: Yes: Anxious, Mild Distress, Thin Eyes: Yes: Conjunctiva Clear, EOM Intact HENT: Yes: WNL, Atraumatic, Normocephalic Neck: Yes: WNL, Supple, Trachea Midline Cardiovascular: Yes: WNL, Regular Rate and Rhythm Respiratory: Yes: Diminished, Dullness (L base) Gastrointestinal: Yes: Normal Bowel Sounds, Soft, Tenderness (R inguinal hernia) Breast(s): Yes: WNL Musculoskeletal: Yes: Back Pain Extremities: Yes: WNL Edema: No Integumentary: Yes: WNL Wound/Incision: No: Clean/Dry, Well Approximated, Sutures Intact, Morgan Intact , Steri Strips, Open to air, Dressing Dry and Intact, Dressing Removed, Morgan Removed, Sutures Removed, Draining, Reddened, Bleeding, Excoriated, Unapproximated, Other Neurological: Yes: WNL, Oriented Labs: CBC, BMP 05/28/17 07:00 05/28/17 07:00 Problem List - Problems (1) Bone metastases Code(s): C79.51 - SECONDARY MALIGNANT NEOPLASM OF BONE (2) Pleural effusion Code(s): J90 - PLEURAL EFFUSION, NOT ELSEWHERE CLASSIFIED (3) Anemia of chronic disease Code(s): D63.8 - ANEMIA IN OTHER CHRONIC DISEASES CLASSIFIED ELSEWHERE (4) Lung cancer Code(s): C34.90 - MALIGNANT NEOPLASM OF UNSP PART OF UNSP BRONCHUS OR LUNG (5) Non-recurrent inguinal hernia of right side Code(s): K40.90 - UNIL INGUINAL HERNIA, W/O OBST OR GANGR, NOT SPCF RECUR (6) Pneumonia Code(s): J18.9 - PNEUMONIA, UNSPECIFIED ORGANISM Qualifiers: Pneumonia type: due to unspecified organism Laterality: unspecified laterality Lung location: unspecified part of lung Qualified Code(s): J18.9 - Pneumonia, unspecified organism Assessment/Plan 56 y/o male w hx adenoca. lung, extensive bone mets s/p RT to spine , s/p chemo , on taxotere/Cyramza (anti-angiogenic) presenting w clinical picture most c/w infection , placed on empiric ab's ; pt also may have disease progression ;L neck pain due to cervical spinal mets but recent MRI not showing cord compression, only the spinal vertebral mets (further RT can be considered but not the priority at this time). Continue ab's and obtain pleural fluid for analysis if seen on sonogram ( include cytology ) ; ? bronchial obstruction on L . Can continue oxycodone 10-20mg PRN and fentanyl 150 q3d. Pt has chemo port R chest which appears unremarkable that can be accessed. Neuro exam nl. The R inguinal hernia is somewhat tender -follow clinically. Note pt on antiangiogenic which leads to delayed wound healing if surgery necessary.
[2017-05-28] MEDS ORDERED: INSULIN (NOVOLOG) ASPART 100 UNITS/ML 10ML VIAL ONE (21:43)
[2017-05-28] MEDS: oxyCODONE HCL 5 MG TABLET PO PRN (21:47)
[2017-05-28] MEDS: fentaNYL 100mcg/hr PATCH.TD72 TD SCH (21:51)
[2017-05-28] MEDS: FENTANYL PATCH WASTE TD PRN ×2 (22:03→22:06)
--- NOTE | 2017-05-28 22:04 | EKG ---
Test Reason : Blood Pressure : / mmHG Vent. Rate : 114 BPM Atrial Rate : 114 BPM P-R Int : 146 ms QRS Dur : 074 ms QT Int : 316 ms P-R-T Axes : 067 068 066 degrees QTc Int : 435 ms SINUS TACHYCARDIA OTHERWISE NORMAL ECG WHEN COMPARED WITH ECG OF 24-FEB-2016 08:17, NO SIGNIFICANT CHANGE WAS FOUND Confirmed by HOLLAND LEZAMA MD ([id number]) on 05/28/2017 10:04:05 PM Referred By: Confirmed By:HOLLAND LEZAMA MD
[2017-05-29] MEDS: methylPREDNISolone NA SUCC 40 MG/1 ML VIAL IVPUSH SCH ×2 (00:12→12:35)
[2017-05-29] MEDS ORDERED: PT OWN MED DRAWER 7, Y5N ONE ×3 (02:26→14:24)
[2017-05-29] MEDS: PIPERACILLIN/TAZOB 3.375 GM 3.375 GM in DEXTROSE 5%-WATER - 100 ML IVPB SCH ×4 (02:33→21:04)
[2017-05-29] MEDS: SODIUM CHLORIDE 1,000 ML IV SCH (04:34)
[2017-05-29] MEDS: ALBUTEROL SO4 2.5/IPRATROPIUM 0.5 INH SOL 3 ML VIAL.NEB. NEB SCH ×5 (06:35→21:10)
[2017-05-29] MEDS: HEPARIN NA (PORCINE) 5,000 UNITS/ML 1ML VIAL SQ SCH ×3 (06:40→23:25)
[2017-05-29] MEDS: INSULIN SLIDING SCALE (NOVOLOG) 1 VIAL SQ SCH ×4 (06:43→23:28)
[2017-05-29] MEDS: oxyCODONE HCL 5 MG TABLET PO PRN ×3 (06:46→21:06)
--- NOTE | 2017-05-29 07:59 | PN ---
Physical Exam: SUBJECTIVE: Patient seen and examined earlier in morning today. Pt received heparin at 6:30am this morning. Otherwise no complaints and anxious about procedure and leaving the hospital. OBJECTIVE: Vital Signs Period Temp Pulse Resp BP Sys/Perales Pulse Ox Last 24 Hr 97.4 F-98.5 F 99-106 18-20 126-138/69-87 99-99 GENERAL: NAD, awake, alert, and fully oriented HEENT: NC/AT, No JVD, sclera anicteric, NAMAN, EOMI, moist mucosa with normal structures of mouth, earrings noted LUNGS: Slightly rhoncherous sounds throughout with diminished breath sounds; on RA; No accessory muscle use HEART: Tachycardic with regular rhythm, normal S1 and S2 without murmur, rub or gallop. ABDOMEN: Soft, slight tenderness to palpation on R inguinal area, nondistended, normoactive bowel sounds, no guarding, no masses. No hepatomegaly. No bulging noted in the scrotal or groin region. Femoral pulses 2+ bilaterally EXTREMITIES: No peripheral edema. 2+ DP pulses, no calf tenderness PSYCHIATRIC: Cooperative. Good eye contact. Appropriate mood and affect. SKIN: Warm, dry, no rashes or lesions noted, normal capillary refill. Laboratory Results - last 24 hr 05/26/17 05/26/17 05/28/17 18:49 20:50 07:00 WBC 14.9 H RBC 3.30 L Hgb 8.3 L D Hct 28.0 L MCV 84.7 MCH 25.1 L MCHC 29.7 L RDW 27.3 H Plt Count 171 D MPV 8.0 Neutrophils % 92.8 H Lymphocytes % 3.7 L D Monocytes % 3.4 L Eosinophils % 0.0 D Basophils % 0.1 PT with INR INR Sodium Potassium Chloride Carbon Dioxide Anion Gap BUN Creatinine Creat Clearance w eGFR POC Glucometer Random Glucose Calcium Phosphorus Magnesium Iron Cancelled TIBC Cancelled Iron Saturation Cancelled Total Bilirubin AST ALT Alkaline Phosphatase Total Protein Albumin M.pneumoniae IgM Titer <770 05/28/17 05/28/17 05/28/17 07:00 12:20 15:30 WBC RBC Hgb Hct MCV MCH MCHC RDW Plt Count MPV Neutrophils % Lymphocytes % Monocytes % Eosinophils % Basophils % PT with INR 11.30 INR 1.00 Sodium 143 Potassium 4.2 Chloride 111 H Carbon Dioxide 24 Anion Gap 8 BUN 12 Creatinine 0.5 L D Creat Clearance w eGFR > 60 POC Glucometer 108 Random Glucose 107 H Calcium 7.1 L Phosphorus 1.7 L D Magnesium 2.5 H Iron TIBC Iron Saturation Total Bilirubin 0.2 AST 9 L D ALT 8 L D Alkaline Phosphatase 65 D Total Protein 5.6 L Albumin 2.1 L M.pneumoniae IgM Titer 05/28/17 05/28/17 05/29/17 17:35 21:23 06:32 WBC RBC Hgb Hct MCV MCH MCHC RDW Plt Count MPV Neutrophils % Lymphocytes % Monocytes % Eosinophils % Basophils % PT with INR INR Sodium Potassium Chloride Carbon Dioxide Anion Gap BUN Creatinine Creat Clearance w eGFR POC Glucometer 155 162 152 Random Glucose Calcium Phosphorus Magnesium Iron TIBC Iron Saturation Total Bilirubin AST ALT Alkaline Phosphatase Total Protein Albumin M.pneumoniae IgM Titer Active Medications Generic Name Dose Route Start Last Admin Trade Name Freq PRN Reason Stop Dose Admin Albuterol Sulfate 1 amp 05/26/17 18:26 Ventolin 0.083% Nebulizer Soln - NEB Q4H PRN SHORT OF BREATH/WHEEZING Albuterol/Ipratropium 1 amp 05/27/17 00:00 05/29/17 06:35 Duoneb - NEB 1 amp QIDR GER[facility] Administration Bisacodyl 5 mg 05/27/17 10:00 05/28/17 09:05 Dulcolax - PO 5 mg DAILY GERONIMO Administration Fentanyl 1 patch 05/28/17 21:16 05/28/17 21:51 Duragesic 100mcg Patch - TD 1 patch Q72H GERONIMO Administration Heparin Sodium (Porcine) 5,000 unit 05/26/17 22:00 05/29/17 06:40 Heparin - SQ 5,000 unit TID GERONIMO Administration Sodium Chloride 1,000 mls @ 100 mls/hr 05/26/17 19:19 05/29/17 04:34 Normal Saline - IV 100 mls/hr ASDIR GERONIMO Administration Vancomycin HCl 1,000 mg/ 250 mls @ 166.667 mls/hr 05/27/17 22:00 05/28/17 21: 49 Dextrose IVPB 166.667 mls/hr BID GERONIMO Administration Piperacillin Sod/Tazobactam 100 mls @ 200 mls/hr 05/27/17 21:00 01/09/18 02: 33 Sod 3.375 gm/ Dextrose IVPB 200 mls/hr Q6H-IV G[facility]ONIMO Administration Insulin Aspart 1 vial 05/26/17 22:00 05/29/17 06:43 Novolog Vial Sliding Scale - SQ 2 units ACHS GERONIMO Administration Protocol Methylprednisolone Sodium Succinate 40 mg 05/27/17 12:00 05/29/17 00:12 Solu-Medrol - IVPUSH 40 mg Q12H [facility] Administration Miscellaneous 1 each 05/28/17 21:16 05/28/17 22:06 Duragesic Patch Waste TD 1 each PRN PRN Administration Oxycodone HCl 10 mg 05/28/17 21:15 05/29/17 06:46 Roxicodone - PO 10 mg Q4H PRN Administration Pantoprazole Sodium 40 mg 05/27/17 10:00 05/28/17 09:05 Protonix - PO 40 mg DAILY GERONIMO Administration ASSESSMENT/PLAN: 56 yo M who presented for shortness of breath and was found to be hypoxic with CXR revealing LLL PNA. 1) Sepsis Secondary to Left Lower Lobe Pneumonia --Continue Zosyn 3.375 q6h --discontinue Vancomycin 1gm BID --Chest CT shows b/l pleural effusions with b/l upper lobe and right middle lobe patchy infiltrates and a minimal pericardial effusion --Pulmonology on board --Thoracentesis for effusions; pleural studies to be sent on fluid --Due to heparin this AM, discussed with IR and will need to postpone tomorrow; LAST DOSE OF HEPARIN 22:00 TONIGHT prior to procedure --Strep pneumo negative; Legionella negative; Flu Negative; BCx negative x2 2) Acute Asthma/COPD Exacerbation with Hypoxia -Likely 2/2 infectious process with aspects of reactive airway disease -- SpO2 to maintain 02 sat >90% -Continue MEdrol 40mg IVP q12h --Continue Duonebs QID --Continue Albuterol q4h PRN 3) R Inguinal Hernia --2/2 to increased coughing --CT ABD showing hernia with only fat involved without any stranding noted --Surgery consult --Defer to outpatient elective repair noted --Monitor for signs of skin changes and/or increasing pain at rest 4) Lung Ca with mets to spine and pelvis --Consult Dr. Lin (hem-[id number]) --Next scheduled chemotherapy for 05/31/17 with last radiation 2 mo ago --Continue Fentanyl 100cg q72h --continue Oxycodone 10mg q4h PRN for breakthrough --Continue Dulcolax 5mg qDaily 5) DM --Type II --BGM --ISS due to steroid use FEN: Fluids: NS @ 100cc/hr Electrolyte Abnormalities: None today Nutrition: Diabetic Controlled diet PPX DVT - Heparin SQ TID; high risk due to hypercoaguable state from Ca; HOLD at 22:00 today GI - Protonix 40mg qDaily due to steroid use Code Status: Full code; would like to HCP Dispo: Continue current M/S management Case discussed with Dr. Lazara Mcneill, DO - Internal Medicine PGY-1 Visit type - Emergency Visit Emergency Visit: No - New Patient This patient is new to me today: No - Critical Care Critical Care patient: No
[2017-05-29 08:57] LABS: TRANSFERRIN 153 mg/dL (200-370)
[2017-05-29 09:27] LABS: BASO % 0.2 % (0-2.0); HEMOGLOBIN 8.5 GM/dL (11.7-16.9); MCH 25.2 pg (25.7-33.7); MCHC 29.2 g/dl (32.0-35.9); MEAN CELL VOLUME 86.1 fl (80-96); MEAN PLT VOLUME 7.7 fl (7.5-11.1); NEUT % 89.8 % (42.8-82.8); PLATELET COUNT 178 K/MM3 (134-434); RBC 3.36 M/mm3 (4.00-5.60); RDW 26.9 % (11.9-15.9); WHITE BLOOD COUNT 15.3 K/mm3 (4.0-10.0)
--- NOTE | 2017-05-29 09:27 | PN ---
Progress Note, Physician History of Present Illness: 56yo PMH Asthma, DM type 2, Lung cancer metastasized to the spine/pelvic on chemotherapy currently (Diagnosed 2015), presented with worsening shortness of breath that started one week ago associated with a productive cough with clear sputum. Patient also complains of right sided groin pain that started one week ago as well and describes the pain as dull and non radiating. He reports that its worse when he coughs, laughs, sneezes, lifts objects and himself. No events overnight. - Current Medication List Current Medications: Active Medications Albuterol Sulfate (Ventolin 0.083% Nebulizer Soln -) 1 amp NEB Q4H PRN PRN Reason: SHORT OF BREATH/WHEEZING Albuterol/Ipratropium (Duoneb -) 1 amp NEB QIDR [facility] Last Admin: 05/29/17 06:35 Dose: 1 amp Bisacodyl (Dulcolax -) 5 mg PO DAILY [facility] Last Admin: 05/28/17 09:05 Dose: 5 mg Fentanyl (Duragesic 100mcg Patch -) 1 patch TD Q72H [facility] Last Admin: 05/28/17 21:51 Dose: 1 patch Sodium Chloride (Normal Saline -) 1,000 mls @ 100 mls/hr IV ASDIR [facility] Last Admin: 05/29/17 04:34 Dose: 100 mls/hr Vancomycin HCl 1,000 mg/ (Dextrose) 250 mls @ 166.667 mls/hr IVPB BID [facility] Last Admin: 05/28/17 21:49 Dose: 166.667 mls/hr Piperacillin Sod/Tazobactam (Sod 3.375 gm/ Dextrose) 100 mls @ 200 mls/hr IVPB Q6H-IV [facility] Last Admin: 05/29/17 02:33 Dose: 200 mls/hr Insulin Aspart (Novolog Vial Sliding Scale -) 1 vial SQ ACHS GERONIMO PRN Reason: Protocol Last Admin: 05/29/17 06:43 Dose: 2 units Methylprednisolone Sodium Succinate (Solu-Medrol -) 40 mg IVPUSH Q12H [facility] Last Admin: 05/29/17 00:12 Dose: 40 mg Miscellaneous (Duragesic Patch Waste) 1 each TD PRN PRN Last Admin: 05/28/17 22:06 Dose: 1 each Oxycodone HCl (Roxicodone -) 10 mg PO Q4H PRN Last Admin: 05/29/17 06:46 Dose: 10 mg Pantoprazole Sodium (Protonix -) 40 mg PO DAILY [facility] Last Admin: 05/28/17 09:05 Dose: 40 mg - Objective Vital Signs: Vital Signs Temperature 98.4 F 05/29/17 06:06 Pulse Rate 100 H 05/29/17 06:06 Respiratory Rate 20 05/29/17 06:06 Blood Pressure 138/85 05/29/17 06:06 O2 Sat by Pulse Oximetry (%) 99 05/28/17 13:52 Constitutional: Yes: No Distress, Calm Eyes: Yes: Conjunctiva Clear, EOM Intact HENT: Yes: Atraumatic, Normocephalic Neck: Yes: Supple, Trachea Midline Cardiovascular: Yes: Regular Rate and Rhythm, S1, S2. No: Murmur Respiratory: Yes: Regular, CTA Bilaterally Gastrointestinal: Yes: Normal Bowel Sounds, Soft. No: Tenderness Genitourinary: Yes: Other (minmally tender swelling right external ring medial on inguinal ligamament, reproducble impulse). No: CVA Tenderness - Left, CVA Tenderness - Right Extremities: No: Cool, Cyanosis Edema: No Peripheral Pulses WNL: Yes Neurological: Yes: Alert, Oriented Psychiatric: Yes: Alert, Oriented Labs: INR, PTT INR 1.00 (0.82-1.09) 05/28/17 15:30 Problem List - Problems (1) Non-recurrent inguinal hernia of right side Assessment/Plan: 56yo male MMP including lung cancer on chemotherapy Non-recurrent Right inguinal hernia, without intestinal obstruction Non-operative management Continue chemotherapy Inguinal Hernia Truss Support Avoid heavy lifting >15lbs Adequate analgesia Follow-up with Dr. Moralez, [facility] 6 week after last chemotherapy Thank you for the opportunity to participate in the care of this patient. Code(s): K40.90 - UNIL INGUINAL HERNIA, W/O OBST OR GANGR, NOT SPCF RECUR (2) Asthma Code(s): J45.909 - UNSPECIFIED ASTHMA, UNCOMPLICATED (3) COPD exacerbation Code(s): J44.1 - CHRONIC OBSTRUCTIVE PULMONARY DISEASE W (ACUTE) EXACERBATION (4) Diabetes Code(s): E11.9 - TYPE 2 DIABETES MELLITUS WITHOUT COMPLICATIONS (5) Lung cancer Code(s): C34.90 - MALIGNANT NEOPLASM OF UNSP PART OF UNSP BRONCHUS OR LUNG
[2017-05-29 09:45] LABS: ANION GAP 6 (8-16); BLOOD UREA NITROGEN 7 mg/dL (7-18); CHLORIDE 112 mmol/L (98-107); CO2 26 mmol/L (21-32); CREATININE 0.6 mg/dL (0.7-1.3); GLUCOSE,RANDOM 96 mg/dL (74-106); MAGNESIUM 2.6 mg/dL (1.8-2.4); PHOSPHOROUS 1.5 mg/dL (2.5-4.9); POTASSIUM 3.8 mmol/L (3.5-5.1); SODIUM 144 mmol/L (136-145)
[2017-05-29] MEDS: VANCOMYCIN 1,000 MG in DEXTROSE 5%-WATER - 250 ML IVPB SCH (10:29)
[2017-05-29] MEDS: BISACODYL 5 MG TABLET.DR (FP) PO SCH (10:30)
[2017-05-29] MEDS: PANTOPRAZOLE 40 MG TABLET (FP) PO SCH (10:30)
--- NOTE | 2017-05-29 13:33 | PN ---
Progress Note, Physician History of Present Illness: patient feeling better breathing better severe pain in the rt inguinal region - Current Medication List Current Medications: Active Medications Albuterol Sulfate (Ventolin 0.083% Nebulizer Soln -) 1 amp NEB Q4H PRN PRN Reason: SHORT OF BREATH/WHEEZING Albuterol/Ipratropium (Duoneb -) 1 amp NEB QIDR [facility] Last Admin: 05/29/17 06:35 Dose: 1 amp Bisacodyl (Dulcolax -) 5 mg PO DAILY [facility] Last Admin: 05/29/17 10:30 Dose: 5 mg Fentanyl (Duragesic 100mcg Patch -) 1 patch TD Q72H [facility] Last Admin: 05/28/17 21:51 Dose: 1 patch Sodium Chloride (Normal Saline -) 1,000 mls @ 100 mls/hr IV ASDIR [facility] Last Admin: 05/29/17 04:34 Dose: 100 mls/hr Vancomycin HCl 1,000 mg/ (Dextrose) 250 mls @ 166.667 mls/hr IVPB BID [facility] Last Admin: 05/29/17 10:29 Dose: 166.667 mls/hr Piperacillin Sod/Tazobactam (Sod 3.375 gm/ Dextrose) 100 mls @ 200 mls/hr IVPB Q6H-IV [facility] Last Admin: 05/29/17 10:30 Dose: 200 mls/hr Insulin Aspart (Novolog Vial Sliding Scale -) 1 vial SQ ACHS [facility] PRN Reason: Protocol Last Admin: 05/29/17 12:40 Dose: Not Given Methylprednisolone Sodium Succinate (Solu-Medrol -) 40 mg IVPUSH Q12H [facility] Last Admin: 05/29/17 12:35 Dose: 40 mg Miscellaneous (Duragesic Patch Waste) 1 each TD PRN PRN Last Admin: 05/28/17 22:06 Dose: 1 each Oxycodone HCl (Roxicodone -) 10 mg PO Q4H PRN Last Admin: 05/29/17 06:46 Dose: 10 mg Pantoprazole Sodium (Protonix -) 40 mg PO DAILY [facility] Last Admin: 05/29/17 10:30 Dose: 40 mg - Objective Vital Signs: Vital Signs Temperature 98.4 F 05/29/17 11:47 Pulse Rate 95 H 05/29/17 11:47 Respiratory Rate 18 05/29/17 11:47 Blood Pressure 133/90 05/29/17 11:47 O2 Sat by Pulse Oximetry (%) 96 05/29/17 09:00 Constitutional: Yes: Calm, Moderate Distress Cardiovascular: Yes: Regular Rate and Rhythm Respiratory: Yes: Regular, CTA Bilaterally Gastrointestinal: Yes: Normal Bowel Sounds, Soft Musculoskeletal: Yes: Muscle Pain Extremities: Yes: WNL Neurological: Yes: Alert, Oriented Psychiatric: Yes: Alert, Oriented Labs: CBC, BMP 05/29/17 09:00 05/29/17 09:00 INR, PTT INR 1.00 (0.82-1.09) 05/28/17 15:30 Assessment/Plan Problem List - Problems (1) COPD exacerbation Code(s): J44.1 - CHRONIC OBSTRUCTIVE PULMONARY DISEASE W (ACUTE) EXACERBATION (2) Pneumonia Code(s): J18.9 - PNEUMONIA, UNSPECIFIED ORGANISM Qualifiers: Pneumonia type: due to unspecified organism Laterality: unspecified laterality Lung location: unspecified part of lung Qualified Code(s): J18.9 - Pneumonia, unspecified organism rt ing hernia metastatic lung cancer plan continue abx will stop vanco incentive corine rest a per primary wbc still on the higher side--has increased slightly
--- NOTE | 2017-05-29 15:12 | PN ---
Progress Note (short form) - Note Progress Note: PULMONARY States breathing is better today. Thoracentesis deferred due to heparin. Last Vital Signs Temp Pulse Resp BP Pulse Ox 98.4 F 95 H 18 133/90 96 05/29/17 11:47 05/29/17 11:47 05/29/17 11:47 05/29/17 11:47 05/29/17 09:00 Gen: NAD at rest Heart: RRR Lung: decreased breath sounds left base Abd: soft, nontender Ext: no edema CBC, BMP 05/29/17 09:00 05/29/17 09:00 Active Medications Albuterol Sulfate (Ventolin 0.083% Nebulizer Soln -) 1 amp NEB Q4H PRN PRN Reason: SHORT OF BREATH/WHEEZING Albuterol/Ipratropium (Duoneb -) 1 amp NEB RQID GERONIMO Bisacodyl (Dulcolax -) 5 mg PO DAILY [facility] Last Admin: 05/29/17 10:30 Dose: 5 mg Fentanyl (Duragesic 100mcg Patch -) 1 patch TD Q72H [facility] Last Admin: 05/28/17 21:51 Dose: 1 patch Heparin Sodium (Porcine) (Heparin -) 5,000 unit SQ TID GERONIMO Stop: 05/29/17 22:00 Last Admin: 05/29/17 14:36 Dose: 5,000 unit Sodium Chloride (Normal Saline -) 1,000 mls @ 100 mls/hr IV ASDIR [facility] Last Admin: 05/29/17 04:34 Dose: 100 mls/hr Piperacillin Sod/Tazobactam (Sod 3.375 gm/ Dextrose) 100 mls @ 200 mls/hr IVPB Q6H-IV [facility] Last Admin: 05/29/17 14:37 Dose: 200 mls/hr Insulin Aspart (Novolog Vial Sliding Scale -) 1 vial SQ ACHS GERONIMO PRN Reason: Protocol Last Admin: 05/29/17 12:40 Dose: Not Given Methylprednisolone Sodium Succinate (Solu-Medrol -) 40 mg IVPUSH Q12H [facility] Last Admin: 05/29/17 12:35 Dose: 40 mg Miscellaneous (Duragesic Patch Waste) 1 each TD PRN PRN Last Admin: 05/28/17 22:06 Dose: 1 each Oxycodone HCl (Roxicodone -) 10 mg PO Q4H PRN Last Admin: 05/29/17 14:38 Dose: 10 mg Pantoprazole Sodium (Protonix -) 40 mg PO DAILY [facility] Last Admin: 05/29/17 10:30 Dose: 40 mg A/P LLL Pneumonia Pleural Effusion Metastatic Lung Ca with bone mets on chemotherapy Asthma DM - continue antibiotics - f/u cultures - for left thoracentesis - hold AM heparin - continue medrol at current dose - inhaled bronchodilators - O2 to keep SpO2 >90% - DVT prophylaxis
--- NOTE | 2017-05-29 15:23 | PN ---
Teaching Attending Note Name of Resident: Jaden Mcneill ATTENDING PHYSICIAN STATEMENT I saw and evaluated the patient. I reviewed the resident's note and discussed the case with the resident. I agree with the resident's findings and plan as documented. SUBJECTIVE:states breathing is improving. continues to have cough. 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 1. Sepsis due to Acute multifocal PNA with bilateral pleural effusion- clinically improved. plan for thoracentesis tomorrow. (was placed on hold as pt received heparin sq this AM). was on vanco/zosyn. vanco now d/c. slight uptrend in leukocytosis more from steroids than worsening infection. will f/u cx 2. Acute hypoxic respiratory distress due to COPD exacerbation- improved. saturating well on 2L NC. on medrol 40mg BID. will decrease to daily. pulmonary on board. nebs prn. supplemental oxygen as needed. will need to be evaluated if requires o2 at home after procedure. 3. Tiny fat containing inguinal hernia- evaluated by surgery. to f/u as outpatient once chemo is completed. 4. Metastatic Lung carcinoma to spine/pelvis- chemo per oncology. pain is controlled 5. Diet controlled DM- iss 6, hypophosphatemia- neutraphos 7. Normocytic anemia- no signs of bleeding. hgb stable. no indication for txn at this time 8. hypermagenesmia 9. DVT ppx- hep sq. WILL HOLD TOMORROW MORNING DOSE
[2017-05-29] MEDS ORDERED: INSULIN (NOVOLOG) ASPART 100 UNITS/ML 10ML VIAL ONE (17:58)
[2017-05-30] MEDS: oxyCODONE HCL 5 MG TABLET PO PRN ×4 (01:22→19:58)
[2017-05-30] MEDS: PIPERACILLIN/TAZOB 3.375 GM 3.375 GM in DEXTROSE 5%-WATER - 100 ML IVPB SCH ×4 (02:34→20:42)
[2017-05-30] MEDS: INSULIN SLIDING SCALE (NOVOLOG) 1 VIAL SQ SCH ×4 (06:13→21:03)
[2017-05-30 08:07] LABS: SERUM IRON SATURATION 21 % (15-55); TOTAL IRON BINDING CAPACITY 179 ug/dL (250-450); UIBC 141 ug/dL (111-343)
[2017-05-30] MEDS ORDERED: PT OWN MED DRAWER 7, Y5N ONE ×3 (08:28→20:40)
[2017-05-30] MEDS: ALBUTEROL SO4 2.5/IPRATROPIUM 0.5 INH SOL 3 ML VIAL.NEB. NEB SCH ×4 (08:55→23:07)
[2017-05-30] MEDS: PANTOPRAZOLE 40 MG TABLET (FP) PO SCH (09:21)
[2017-05-30] MEDS: BISACODYL 5 MG TABLET.DR (FP) PO SCH (09:21)
[2017-05-30] MEDS: methylPREDNISolone NA SUCC 40 MG/1 ML VIAL IVPUSH SCH (09:21)
--- NOTE | 2017-05-30 11:45 | PN ---
Progress Note (short form) - Note Progress Note: PULMONARY VSS/AFEBRILE ANICTERIC DIMINISHED LEFT BASE BREATH SOUNDS RSR BS+ NO EDEMA POST-TAP CXR REVIEWED AWAIT OFFICIAL REPORT/ LLL Pneumonia Pleural Effusion Metastatic Lung Ca with bone mets on chemotherapy Asthma DM - continue antibiotics - f/u pleural fluid results - stable post left thoracentesis - continue medrol at current dose - inhaled bronchodilators - O2 to keep SpO2 >90% - DVT prophylaxis Janusz ALONSO MD
[2017-05-30 12:03] LABS: GLUCOSE,PLEURAL FLUID 126.919
[2017-05-30 12:53] LABS: PLEURAL FLUID APPEARANCE HAZY; PLEURAL FLUID COLOR LT YELLOW
[2017-05-30 12:54] LABS: PLEURAL FLUID RBC 470 /mm3
[2017-05-30 14:29] LABS: PLEURAL FLUID MACROPHAGES 37 %; PLEURAL FLUID NEUTROPHIL 50 %
--- NOTE | 2017-05-30 15:33 | PN ---
Progress Note, Physician History of Present Illness: patient feeling much better still with groin pain had tap done breathing no issues - Current Medication List Current Medications: Active Medications Albuterol Sulfate (Ventolin 0.083% Nebulizer Soln -) 1 amp NEB Q4H PRN PRN Reason: SHORT OF BREATH/WHEEZING Albuterol/Ipratropium (Duoneb -) 1 amp NEB RQID [facility] Last Admin: 05/30/17 08:55 Dose: 1 amp Bisacodyl (Dulcolax -) 5 mg PO DAILY [facility] Last Admin: 05/30/17 09:21 Dose: 5 mg Fentanyl (Duragesic 100mcg Patch -) 1 patch TD Q72H [facility] Last Admin: 05/28/17 21:51 Dose: 1 patch Piperacillin Sod/Tazobactam (Sod 3.375 gm/ Dextrose) 100 mls @ 200 mls/hr IVPB Q6H-IV [facility] Last Admin: 05/30/17 14:01 Dose: 200 mls/hr Insulin Aspart (Novolog Vial Sliding Scale -) 1 vial SQ ACHS [facility] PRN Reason: Protocol Last Admin: 05/30/17 13:08 Dose: Not Given Methylprednisolone Sodium Succinate (Solu-Medrol -) 40 mg IVPUSH DAILY [facility] Last Admin: 05/30/17 09:21 Dose: 40 mg Miscellaneous (Duragesic Patch Waste) 1 each TD PRN PRN Last Admin: 05/28/17 22:06 Dose: 1 each Oxycodone HCl (Roxicodone -) 10 mg PO Q4H PRN Last Admin: 05/30/17 13:33 Dose: 10 mg Pantoprazole Sodium (Protonix -) 40 mg PO DAILY [facility] Last Admin: 05/30/17 09:21 Dose: 40 mg - Objective Vital Signs: Vital Signs Temperature 99.2 F 05/30/17 15:19 Pulse Rate 100 H 05/30/17 15:19 Respiratory Rate 18 05/30/17 15:19 Blood Pressure 130/89 05/30/17 15:19 O2 Sat by Pulse Oximetry (%) 96 05/30/17 11:00 Constitutional: Yes: Calm, Mild Distress Cardiovascular: Yes: Regular Rate and Rhythm Respiratory: Yes: Poor Air Entry, Other Gastrointestinal: Yes: Normal Bowel Sounds, Soft Musculoskeletal: Yes: Other Extremities: Yes: Other (rt groin pain) Neurological: Yes: Alert, Oriented Psychiatric: Yes: Alert, Oriented Labs: CBC, BMP 05/29/17 09:00 05/29/17 09:00 INR, PTT INR 1.00 (0.82-1.09) 05/28/17 15:30 Assessment/Plan Problem List - Problems (1) COPD exacerbation Code(s): J44.1 - CHRONIC OBSTRUCTIVE PULMONARY DISEASE W (ACUTE) EXACERBATION (2) Pneumonia Code(s): J18.9 - PNEUMONIA, UNSPECIFIED ORGANISM Qualifiers: Pneumonia type: due to unspecified organism Laterality: unspecified laterality Lung location: unspecified part of lung Qualified Code(s): J18.9 - Pneumonia, unspecified organism rt ing hernia metastatic lung cancer plan continue abx await for all the reports rest as per primary team and pulmonary
--- NOTE | 2017-05-30 15:38 | PN ---
Teaching Attending Note Name of Resident: Jaden Mcneill ATTENDING PHYSICIAN STATEMENT I saw and evaluated the patient. I reviewed the resident's note and discussed the case with the resident. I agree with the resident's findings and plan as documented. pt evalutaed at 0930 this AM prior to procedure SUBJECTIVE:asymptomatic. states breathing is improved. 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 1. Sepsis due to Acute multifocal PNA with bilateral pleural effusion- clinically improved. Thoracentesis today. f/u fluid stuides. check for infection and cytology. on Zosyn day 5. off vanco. will d/w ID tomorrow about abx duration pending results of procedure. will f/u cx 2. Acute hypoxic respiratory distress due to COPD exacerbation- improved. saturating well on 2L NC. on medrol 40mg daily. will consider transitioning to po in AM if improved. check pre and post in AM. post-procedure CXR. pulmonary on board. nebs prn. supplemental oxygen as needed. 3. Tiny fat containing inguinal hernia- evaluated by surgery. to f/u as outpatient once chemo is completed. 4. Metastatic Lung carcinoma to spine/pelvis- chemo per oncology. pain is controlled 5. Diet controlled DM- iss 6, hypophosphatemia- awaiting lab repeat 7. Normocytic anemia- no signs of bleeding. hgb stable. no indication for txn at this time 8. hypermagenesmia 9. DVT ppx- will re-start heparin tonight
[2017-05-30 18:45] LABS: BASO % 0.2 % (0-2.0); HEMATOCRIT 27.8 % (35.4-49); HEMOGLOBIN 8.4 GM/dL (11.7-16.9); LYMPH % 5.1 % (8-40); MCH 25.8 pg (25.7-33.7); MCHC 30.2 g/dl (32.0-35.9); MEAN CELL VOLUME 85.6 fl (80-96); MEAN PLT VOLUME 7.8 fl (7.5-11.1); MONO % 5.5 % (3.8-10.2); NEUT % 89.2 % (42.8-82.8); PLATELET COUNT 180 K/MM3 (134-434); RBC 3.24 M/mm3 (4.00-5.60); RDW 26.8 % (11.9-15.9); WHITE BLOOD COUNT 12.3 K/mm3 (4.0-10.0)
[2017-05-30 19:09] LABS: ALBUMIN 2.3 g/dl (3.4-5.0); ANION GAP 8 (8-16); BILIRUBIN,TOTAL 0.3 mg/dL (0.2-1.0); BLOOD UREA NITROGEN 9 mg/dL (7-18); CALCIUM 7.1 mg/dL (8.5-10.1); CHLORIDE 109 mmol/L (98-107); CO2 23 mmol/L (21-32); CREATININE 0.6 mg/dL (0.7-1.3); GLUCOSE,RANDOM 168 mg/dL (74-106); LDH 195 U/L (87-241); PHOSPHOROUS 1.3 mg/dL (2.5-4.9); POTASSIUM 3.8 mmol/L (3.5-5.1); SGOT/AST 8 U/L (15-37); SGPT/ALT 12 U/L (12-78); SODIUM 140 mmol/L (136-145); TOT PROT 5.8 g/dl (6.4-8.2)
[2017-05-30 19:10] LABS: ALK PHOS 59 U/L (45-117)
--- NOTE | 2017-05-30 19:48 | PN ---
Physical Exam: SUBJECTIVE: No acute events. No complaints. Breathing feels better to pt today. OBJECTIVE: Vital Signs Period Temp Pulse Resp BP Sys/Perales Pulse Ox Last 24 Hr 98.1 F-99.2 F 66-109 18-20 117-130/78-89 96 GENERAL: NAD, awake, alert, and fully oriented HEENT: NC/AT, No JVD, sclera anicteric, NAMAN, EOMI, moist mucosa with normal structures of mouth, earrings noted LUNGS: Slightly rhoncherous sounds throughout with diminished breath sounds at bases, however improving; on RA; No accessory muscle use HEART: RRR, normal S1 and S2 without murmur, rub or gallop. ABDOMEN: Soft, slight tenderness to palpation on R inguinal area, nondistended, normoactive bowel sounds, no guarding, no masses. No hepatomegaly. EXTREMITIES: No peripheral edema. 2+ DP pulses, no calf tenderness PSYCHIATRIC: Cooperative. Good eye contact. Appropriate mood and affect. SKIN: Warm, dry, no rashes or lesions noted, normal capillary refill Laboratory Results - last 24 hr 05/26/17 05/30/17 05/30/17 20:50 05:52 10:40 WBC RBC Hgb Hct MCV MCH MCHC RDW Plt Count MPV Neutrophils % Lymphocytes % Monocytes % Eosinophils % Basophils % POC Glucometer 118 Iron 38 TIBC 179 L Iron Saturation 21 Fluid Other Cells 13 Pleural Fluid Source Pleural Pleural Color Lt yellow Pleural Appearance Hazy Pleural WBC 1430 Pleural RBC 470 Pleural Neutrophils 50 Pleural Macrophages 37 Pleural Total Protein 3.050 Pleural Albumin 2 Pleural LDH 134 Pleural Glucose 126.919 Pleural Amylase 8.194 Pleural Cholesterol 51 05/30/17 05/30/17 05/30/17 13:08 17:33 17:40 WBC 12.3 H RBC 3.24 L Hgb 8.4 L Hct 27.8 L MCV 85.6 MCH 25.8 MCHC 30.2 L RDW 26.8 H Plt Count 180 MPV 7.8 Neutrophils % 89.2 H Lymphocytes % 5.1 L D Monocytes % 5.5 Eosinophils % 0.0 Basophils % 0.2 POC Glucometer 113 190 Iron TIBC Iron Saturation Fluid Other Cells Pleural Fluid Source Pleural Color Pleural Appearance Pleural WBC Pleural RBC Pleural Neutrophils Pleural Macrophages Pleural Total Protein Pleural Albumin Pleural LDH Pleural Glucose Pleural Amylase Pleural Cholesterol Active Medications Generic Name Dose Route Start Last Admin Trade Name Freq PRN Reason Stop Dose Admin Albuterol Sulfate 1 amp 05/26/17 18:26 Ventolin 0.083% Nebulizer Soln - NEB Q4H PRN SHORT OF BREATH/WHEEZING Albuterol/Ipratropium 1 amp 05/29/17 13:56 05/30/17 16:45 Duoneb - NEB 1 amp RQID GER[facility] Administration Bisacodyl 5 mg 05/27/17 10:00 05/30/17 09:21 Dulcolax - PO 5 mg DAILY [facility] Administration Fentanyl 1 patch 05/28/17 21:16 05/28/17 21:51 Duragesic 100mcg Patch - TD 1 patch Q72H [facility] Administration Piperacillin Sod/Tazobactam 100 mls @ 200 mls/hr 05/27/17 21:00 05/30/17 14: 01 Sod 3.375 gm/ Dextrose IVPB 200 mls/hr Q6H-IV [facility] Administration Insulin Aspart 1 vial 05/26/17 22:00 05/30/17 17:54 Novolog Vial Sliding Scale - SQ 2 units ACHS [facility]ER[facility] Administration Protocol Methylprednisolone Sodium Succinate 40 mg 05/30/17 10:00 05/30/17 09:21 Solu-Medrol - IVPUSH 40 mg DAILY [facility] Administration Miscellaneous 1 each 05/28/17 21:16 05/28/17 22:06 Duragesic Patch Waste TD 1 each PRN PRN Administration Oxycodone HCl 10 mg 05/28/17 21:15 05/30/17 13:33 Roxicodone - PO 10 mg Q4H PRN Administration Pantoprazole Sodium 40 mg 05/27/17 10:00 05/30/17 09:21 Protonix - PO 40 mg DAILY [facility] Administration ASSESSMENT/PLAN: 56 yo M who presented for shortness of breath and was found to be hypoxic with CXR revealing LLL PNA. 1) Sepsis Secondary to Left Lower Lobe Pneumonia --Continue Zosyn 3.375 q6h --discontinue Vancomycin 1gm BID --Chest CT shows b/l pleural effusions with b/l upper lobe and right middle lobe patchy infiltrates and a minimal pericardial effusion --Pulmonology on board --S/p Thoracentesis --Pleural studies noted; Lytes Criteria could not be utilized due to lack of serum LDH --Cytology sent --Strep pneumo negative; Legionella negative; Flu Negative; BCx negative x2 2) Acute Asthma/COPD Exacerbation with Hypoxia -Likely 2/2 infectious process with aspects of reactive airway disease -- SpO2 to maintain 02 sat >90% -Continue MEdrol 40mg IVP qDaily --Possibility of switching to oral tomorrow --Continue Duonebs QID --Continue Albuterol q4h PRN 3) R Inguinal Hernia --2/2 to increased coughing --CT ABD showing hernia with only fat involved without any stranding noted --Surgery consult --Defer to outpatient elective repair noted --Monitor for signs of skin changes and/or increasing pain at rest 4) Lung Ca with mets to spine and pelvis --Consult Dr. Lin (hem-onc) --Next scheduled chemotherapy for 05/31/17 with last radiation 2 mo ago --Continue Fentanyl 100cg q72h --continue Oxycodone 10mg q4h PRN for breakthrough --Continue Dulcolax 5mg qDaily 5) DM --Type II --BGM --ISS due to steroid use FEN: Fluids: NS @ 100cc/hr Electrolyte Abnormalities: None today Nutrition: Diabetic Controlled diet PPX DVT - Heparin SQ TID; high risk due to hypercoaguable state from Ca GI - Protonix 40mg qDaily due to steroid use Code Status: Full code; would like to HCP Dispo: Continue current M/S management Case discussed with Dr. Lazara Mcneill, DO - Internal Medicine PGY-1 Visit type - Emergency Visit Emergency Visit: No - New Patient This patient is new to me today: No - Critical Care Critical Care patient: No
[2017-05-31] MEDS: oxyCODONE HCL 5 MG TABLET PO PRN ×5 (00:33→19:29)
[2017-05-31] MEDS: PIPERACILLIN/TAZOB 3.375 GM 3.375 GM in DEXTROSE 5%-WATER - 100 ML IVPB SCH ×4 (02:16→20:33)
[2017-05-31] MEDS: INSULIN SLIDING SCALE (NOVOLOG) 1 VIAL SQ SCH ×4 (06:44→22:32)
--- NOTE | 2017-05-31 08:13 | PN ---
Progress Note, Physician Chief Complaint: right groin pain History of Present Illness: 56yo PMH Asthma, DM type 2, Lung cancer metastasized to the spine/pelvic on chemotherapy currently (Diagnosed 2016), presented with worsening shortness of breath that started one week ago associated with a productive cough with clear sputum. Patient also complains of right sided groin pain that started one week ago as well and describes the pain as dull and non radiating. He reports that its worse when he coughs, laughs, sneezes, lifts objects and himself. No events overnight. - Current Medication List Current Medications: Active Medications Albuterol Sulfate (Ventolin 0.083% Nebulizer Soln -) 1 amp NEB Q4H PRN PRN Reason: SHORT OF BREATH/WHEEZING Albuterol/Ipratropium (Duoneb -) 1 amp NEB RQID [facility]PL[facility] Last Admin: 05/30/17 23:07 Dose: 1 amp Bisacodyl (Dulcolax -) 5 mg PO DAILY [facility] Last Admin: 05/30/17 09:21 Dose: 5 mg Fentanyl (Duragesic 100mcg Patch -) 1 patch TD Q72H [facility] Last Admin: 05/28/17 21:51 Dose: 1 patch Piperacillin Sod/Tazobactam (Sod 3.375 gm/ Dextrose) 100 mls @ 200 mls/hr IVPB Q6H-IV [facility] Last Admin: 05/31/17 02:16 Dose: 200 mls/hr Insulin Aspart (Novolog Vial Sliding Scale -) 1 vial SQ ACHS [facility] PRN Reason: Protocol Last Admin: 05/31/17 06:44 Dose: Not Given Methylprednisolone Sodium Succinate (Solu-Medrol -) 40 mg IVPUSH DAILY [facility] Last Admin: 05/30/17 09:21 Dose: 40 mg Miscellaneous (Duragesic Patch Waste) 1 each TD PRN PRN Last Admin: 05/28/17 22:06 Dose: 1 each Oxycodone HCl (Roxicodone -) 10 mg PO Q4H PRN Last Admin: 05/31/17 04:35 Dose: 10 mg Pantoprazole Sodium (Protonix -) 40 mg PO DAILY [facility] Last Admin: 05/30/17 09:21 Dose: 40 mg - Objective Vital Signs: Vital Signs Temperature 98.4 F 01/11/18 07:24 Pulse Rate 104 H 05/31/17 07:24 Respiratory Rate 20 05/31/17 07:24 Blood Pressure 133/89 05/31/17 07:24 O2 Sat by Pulse Oximetry (%) 96 05/30/17 21:00 Vital Signs Period Temp Pulse Resp BP Sys/Perales Pulse Ox Last 24 Hr 98.1 F-99.2 F 97-109 18-20 120-133/80-89 96-96 Constitutional: Yes: Well Nourished, No Distress, Calm Eyes: Yes: Conjunctiva Clear, EOM Intact HENT: Yes: Atraumatic, Normocephalic Neck: Yes: Supple, Trachea Midline Cardiovascular: Yes: Regular Rate and Rhythm, S1, S2. No: Murmur Respiratory: Yes: Regular, CTA Bilaterally (imporved from pre-procedrue), Cough , Rhonchi (minimal L>R). No: SOB Gastrointestinal: Yes: Normal Bowel Sounds, Soft, Tenderness (right groin). No : Tenderness, Epigastrium, Tenderness, Rebound ...Rectal Exam: Yes: Deferred Genitourinary: No: CVA Tenderness - Left, CVA Tenderness - Right Musculoskeletal: No: Muscle Pain, Muscle Weakness Extremities: No: Cool, Cyanosis Edema: No Peripheral Pulses WNL: Yes Peripheral Pulses: Left Radial: 2+, Right Radial: 2+, Left Doralis Pedis: 2+, Right Dorsalis Pedis: 2+, Left Femoral: 2+, Right Femoral: 2+ Integumentary: No: Jaundice, Rash Neurological: Yes: Alert, Oriented Psychiatric: Yes: Alert, Oriented Labs: CBC, BMP 05/30/17 17:40 05/30/17 17:40 INR, PTT INR 1.00 (0.82-1.09) 05/28/17 15:30 Problem List - Problems (1) Non-recurrent inguinal hernia of right side Assessment/Plan: 56yo male MMP including lung cancer on chemotherapy Non-recurrent Right inguinal hernia, without intestinal obstruction Non-operative management Continue chemotherapy Inguinal Hernia Truss Support - called not in store room Avoid heavy lifting >15lbs Adequate analgesia Follow-up with Dr. Moralez, [facility] 6 week after last chemotherapy Code(s): K40.90 - UNIL INGUINAL HERNIA, W/O OBST OR GANGR, NOT SPCF RECUR (2) Asthma Code(s): J45.909 - UNSPECIFIED ASTHMA, UNCOMPLICATED (3) COPD exacerbation Code(s): J44.1 - CHRONIC OBSTRUCTIVE PULMONARY DISEASE W (ACUTE) EXACERBATION (4) Diabetes Code(s): E11.9 - TYPE 2 DIABETES MELLITUS WITHOUT COMPLICATIONS (5) Lung cancer Code(s): C34.90 - MALIGNANT NEOPLASM OF UNSP PART OF UNSP BRONCHUS OR LUNG
[2017-05-31] MEDS: ALBUTEROL SO4 2.5/IPRATROPIUM 0.5 INH SOL 3 ML VIAL.NEB. NEB SCH ×4 (08:30→20:57)
[2017-05-31] MEDS: BISACODYL 5 MG TABLET.DR (FP) PO SCH (09:12)
[2017-05-31] MEDS: methylPREDNISolone NA SUCC 40 MG/1 ML VIAL IVPUSH SCH (09:12)
[2017-05-31] MEDS: PANTOPRAZOLE 40 MG TABLET (FP) PO SCH (09:12)
--- NOTE | 2017-05-31 10:41 | PN ---
Progress Note, Physician Chief Complaint: SOB/cough/phlegm History of Present Illness: 56 y/o Male w hx adenocarcinoma lung (primary likely a 1.7 cm lesion along L major fissure ) with extensive bony mets s/p RT to lower spine , Rx w chemoRx most recently on Taxotere/Cyramza and Xgeva who also has a chronic pain syndrome on oxyIR 10-20 mg q4-6h round the clock and fentanyl 150mcg/hr q3d . Pt recently developed neck pain ; MRI C-spine showing bony mets but no compression. Pt was due to have another body scan to assess disease status. Now pt presents w cough/clear phlegm X 4 days/increasing SOB/NUÑEZ X 2 weeks and pain R groin and L side neck. Pt had CT c/a/p which showed patchy infiltrates on the R and consolidation /atelectasis/pleural effusion on L ; extensive spine /hip mets/sternum. Pt placed on broad spectrum ab's , bronchodilators for probable pneumonia and L thoracentesis being considered . Pt also found to have R inguinal hernia w fat , no emergent surgery at this time . pt Rx w ab's empirically, feeling better, less SOB/cough ; s/p L thoracentesis w predominence of PMN's , cultures pending , cytology pending.Afebrile ; R groin pain less , occ neck pain. - Current Medication List Current Medications: Active Medications Albuterol Sulfate (Ventolin 0.083% Nebulizer Soln -) 1 amp NEB Q4H PRN PRN Reason: SHORT OF BREATH/WHEEZING Albuterol/Ipratropium (Duoneb -) 1 amp NEB RQID [facility] Last Admin: 05/31/17 08:30 Dose: 1 amp Bisacodyl (Dulcolax -) 5 mg PO DAILY [facility] Last Admin: 05/31/17 09:12 Dose: 5 mg Fentanyl (Duragesic 100mcg Patch -) 1 patch TD Q72H [facility] Last Admin: 05/28/17 21:51 Dose: 1 patch Piperacillin Sod/Tazobactam (Sod 3.375 gm/ Dextrose) 100 mls @ 200 mls/hr IVPB Q6H-IV [facility] Last Admin: 05/31/17 09:12 Dose: 200 mls/hr Insulin Aspart (Novolog Vial Sliding Scale -) 1 vial SQ ACHS [facility] PRN Reason: Protocol Last Admin: 05/31/17 06:44 Dose: Not Given Methylprednisolone Sodium Succinate (Solu-Medrol -) 40 mg IVPUSH DAILY [facility] Last Admin: 05/31/17 09:12 Dose: 40 mg Miscellaneous (Duragesic Patch Waste) 1 each TD PRN PRN Last Admin: 05/28/17 22:06 Dose: 1 each Oxycodone HCl (Roxicodone -) 10 mg PO Q4H PRN Last Admin: 05/31/17 09:17 Dose: 10 mg Pantoprazole Sodium (Protonix -) 40 mg PO DAILY [facility] Last Admin: 05/31/17 09:12 Dose: 40 mg - Objective Vital Signs: Vital Signs Temperature 98.1 F 05/31/17 09:00 Pulse Rate 114 H 05/31/17 09:00 Respiratory Rate 18 05/31/17 09:00 Blood Pressure 128/84 05/31/17 09:00 O2 Sat by Pulse Oximetry (%) 96 05/30/17 21:00 Constitutional: Yes: Well Nourished, No Distress, Calm Eyes: Yes: WNL, Conjunctiva Clear, EOM Intact HENT: Yes: WNL, Atraumatic, Normocephalic Neck: Yes: WNL, Supple, Trachea Midline Cardiovascular: Yes: WNL, Regular Rate and Rhythm Respiratory: Yes: WNL, Regular, Diminished, Dullness (L base) Gastrointestinal: Yes: WNL, Normal Bowel Sounds, Soft, Hernia, Tenderness (mild tenderness hernia) Extremities: Yes: WNL Edema: No Integumentary: Yes: WNL Neurological: Yes: WNL, Alert, Oriented Psychiatric: Yes: WNL, Alert, Oriented Labs: CBC, BMP 05/30/17 17:40 05/30/17 17:40 INR, PTT INR 1.00 (0.82-1.09) 05/28/17 15:30 Problem List - Problems (1) Bone metastases Code(s): C79.51 - SECONDARY MALIGNANT NEOPLASM OF BONE (2) Pleural effusion Code(s): J90 - PLEURAL EFFUSION, NOT ELSEWHERE CLASSIFIED (3) Anemia of chronic disease Code(s): D63.8 - ANEMIA IN OTHER CHRONIC DISEASES CLASSIFIED ELSEWHERE (4) Lung cancer Code(s): C34.90 - MALIGNANT NEOPLASM OF UNSP PART OF UNSP BRONCHUS OR LUNG (5) Non-recurrent inguinal hernia of right side Code(s): K40.90 - UNIL INGUINAL HERNIA, W/O OBST OR GANGR, NOT SPCF RECUR (6) Pneumonia Code(s): J18.9 - PNEUMONIA, UNSPECIFIED ORGANISM Qualifiers: Pneumonia type: due to unspecified organism Laterality: unspecified laterality Lung location: unspecified part of lung Qualified Code(s): J18.9 - Pneumonia, unspecified organism Assessment/Plan Pt improving clinically w ab's for pneumonia, , s/p thoracentesis ; if pt seems well enough for d/c from ID perspective , can see me in office next week fo f/u ; to make decision regarding whether pt progressing and change in Rx .He will continue w previous oxyIR and fentanyl .
--- NOTE | 2017-05-31 10:42 | PN ---
Progress Note (short form) - Note Progress Note: PULMONARY s/p left thoracentesis with improvement in breathing. No fevers or chills. Minimal cough. Initial pleural fluid analysis consistent with exudate. Last Vital Signs Temp Pulse Resp BP Pulse Ox 98.1 F 114 H 18 128/84 96 05/31/17 09:00 05/31/17 09:00 05/31/17 09:00 05/31/17 09:00 05/30/17 21:00 Gen: NAD at rest Heart: RRR Lung: decreased breath sounds left base Abd: soft, nontender Ext: no edema CBC, BMP 05/30/17 17:40 05/30/17 17:40 Active Medications Albuterol Sulfate (Ventolin 0.083% Nebulizer Soln -) 1 amp NEB Q4H PRN PRN Reason: SHORT OF BREATH/WHEEZING Albuterol/Ipratropium (Duoneb -) 1 amp NEB RQID [facility] Last Admin: 05/31/17 08:30 Dose: 1 amp Bisacodyl (Dulcolax -) 5 mg PO DAILY [facility] Last Admin: 05/31/17 09:12 Dose: 5 mg Fentanyl (Duragesic 100mcg Patch -) 1 patch TD Q72H [facility] Last Admin: 05/28/17 21:51 Dose: 1 patch Piperacillin Sod/Tazobactam (Sod 3.375 gm/ Dextrose) 100 mls @ 200 mls/hr IVPB Q6H-IV [facility] Last Admin: 05/31/17 09:12 Dose: 200 mls/hr Insulin Aspart (Novolog Vial Sliding Scale -) 1 vial SQ ACHS [facility] PRN Reason: Protocol Last Admin: 05/31/17 06:44 Dose: Not Given Methylprednisolone Sodium Succinate (Solu-Medrol -) 40 mg IVPUSH DAILY [facility] Last Admin: 05/31/17 09:12 Dose: 40 mg Miscellaneous (Duragesic Patch Waste) 1 each TD PRN PRN Last Admin: 05/28/17 22:06 Dose: 1 each Oxycodone HCl (Roxicodone -) 10 mg PO Q4H PRN Last Admin: 05/31/17 09:17 Dose: 10 mg Pantoprazole Sodium (Protonix -) 40 mg PO DAILY [facility] Last Admin: 05/31/17 09:12 Dose: 40 mg A/P LLL Pneumonia Pleural Effusion Metastatic Lung Ca with bone mets on chemotherapy Asthma DM - continue antibiotics, can change to PO - f/u pleural fluid cultures and cytology - for left thoracentesis - can change steroids to PO prednisone 40mg daily and give 3 more days then stop - inhaled bronchodilators - O2 to keep SpO2 >90% - DVT prophylaxis - outpt f/u, can d/c home from pulmonary standpoint
--- NOTE | 2017-05-31 11:23 | PN ---
Progress Note, Physician History of Present Illness: patient feeling better s/p thoracocentesis looks like exudate still with pain in the inguinal region wbc trending down - Current Medication List Current Medications: Active Medications Albuterol Sulfate (Ventolin 0.083% Nebulizer Soln -) 1 amp NEB Q4H PRN PRN Reason: SHORT OF BREATH/WHEEZING Albuterol/Ipratropium (Duoneb -) 1 amp NEB RQID [facility] Last Admin: 05/31/17 08:30 Dose: 1 amp Bisacodyl (Dulcolax -) 5 mg PO DAILY [facility] Last Admin: 05/31/17 09:12 Dose: 5 mg Fentanyl (Duragesic 100mcg Patch -) 1 patch TD Q72H [facility] Last Admin: 05/28/17 21:51 Dose: 1 patch Piperacillin Sod/Tazobactam (Sod 3.375 gm/ Dextrose) 100 mls @ 200 mls/hr IVPB Q6H-IV [facility] Last Admin: 05/31/17 09:12 Dose: 200 mls/hr Insulin Aspart (Novolog Vial Sliding Scale -) 1 vial SQ ACHS [facility] PRN Reason: Protocol Last Admin: 05/31/17 06:44 Dose: Not Given Methylprednisolone Sodium Succinate (Solu-Medrol -) 40 mg IVPUSH DAILY [facility] Last Admin: 05/31/17 09:12 Dose: 40 mg Miscellaneous (Duragesic Patch Waste) 1 each TD PRN PRN Last Admin: 05/28/17 22:06 Dose: 1 each Oxycodone HCl (Roxicodone -) 10 mg PO Q4H PRN Last Admin: 05/31/17 09:17 Dose: 10 mg Pantoprazole Sodium (Protonix -) 40 mg PO DAILY [facility] Last Admin: 05/31/17 09:12 Dose: 40 mg - Objective Vital Signs: Vital Signs Temperature 98.1 F 05/31/17 09:00 Pulse Rate 114 H 05/31/17 09:00 Respiratory Rate 18 05/31/17 09:00 Blood Pressure 128/84 05/31/17 09:00 O2 Sat by Pulse Oximetry (%) 96 05/30/17 21:00 Constitutional: Yes: Calm, Mild Distress Cardiovascular: Yes: Regular Rate and Rhythm Respiratory: Yes: Regular, Poor Air Entry Gastrointestinal: Yes: Normal Bowel Sounds, Soft Musculoskeletal: Yes: WNL Extremities: Yes: WNL Neurological: Yes: Alert, Oriented Psychiatric: Yes: Alert, Oriented Labs: CBC, BMP 05/30/17 17:40 05/30/17 17:40 INR, PTT INR 1.00 (0.82-1.09) 05/28/17 15:30 Assessment/Plan Problem List - Problems (1) COPD exacerbation Code(s): J44.1 - CHRONIC OBSTRUCTIVE PULMONARY DISEASE W (ACUTE) EXACERBATION (2) Pneumonia Code(s): J18.9 - PNEUMONIA, UNSPECIFIED ORGANISM Qualifiers: Pneumonia type: due to unspecified organism Laterality: unspecified laterality Lung location: unspecified part of lung Qualified Code(s): J18.9 - Pneumonia, unspecified organism rt ing hernia metastatic lung cancer pleural effusion dm plan continue abx will switch to oral tomorrow if wbc continues to improve incentive corine rest as per primary team
--- NOTE | 2017-05-31 13:33 | PN ---
Teaching Attending Note Name of Resident: Jaden Mcneill ATTENDING PHYSICIAN STATEMENT I saw and evaluated the patient. I reviewed the resident's note and discussed the case with the resident. I agree with the resident's findings and plan as documented. SUBJECTIVE:improved. has minimal cough. denies CP, SOB, fever, chills, N/V/C/D OBJECTIVE: Last Vital Signs Temp Pulse Resp BP Pulse Ox 98.1 F 114 H 18 128/84 96 05/31/17 09:00 05/31/17 09:00 05/31/17 09:00 05/31/17 09:00 05/31/17 09:00 General NAD CV S1 S2 RRR Lungs decreased R base. no crackles + L bandage with dried blood. area non tender. 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 1. Sepsis due to Acute multifocal PNA with bilateral pleural effusion- clinically improved. s/p L Thoracentesis yesterday. tolerated well. +exudative fluid, Cx NGTD. on Zosyn day 5. as per ID needs 1 more day of IV abx then can transition to augmentin tomorrow to complete course. will need to f/u with pulmonary for official results of procedure. verbalized understanding. 2. Acute hypoxic respiratory distress due to COPD exacerbation- improved. saturating 97% on 2L NC. on medrol 40mg daily will transiiton to prednisone po for total of 5days. heck pre and post to evlauate if requires home O2. pulmonary to evaluate for inhalers. nebs prn. supplemental oxygen as needed. 3. Tiny fat containing inguinal hernia- evaluated by surgery. to f/u as outpatient once chemo is completed. 4. Metastatic Lung carcinoma to spine/pelvis- chemo per oncology. pain is controlled 5. Diet controlled DM- iss 6, hypophosphatemia- neutraphos po 7. Normocytic anemia- no signs of bleeding. hgb stable. no indication for txn at this time 8. hypermagenesmia 9. DVT ppx-hep sq 10. can be d/c in AM with oral abx and pulmonary follow up
[2017-05-31] MEDS ORDERED: PT OWN MED DRAWER 7, Y5N ONE (20:05)
[2017-05-31] MEDS: fentaNYL 100mcg/hr PATCH.TD72 TD SCH (22:08)
--- NOTE | 2017-06-01 01:15 | PN ---
Physical Exam: SUBJECTIVE: Patient seen and examined earlier in the morning today. No events overnight. Pt reports better breathing since thoracentesis yesterday. Pt denies any pain from procedure site, fevers, chills. OBJECTIVE: Vital Signs Period Temp Pulse Resp BP Sys/Perales Pulse Ox Last 24 Hr 97.9 F-98.6 F 104-123 18-20 116-133/81-90 96 GENERAL: NAD, awake, alert, and fully oriented HEENT: NC/AT, No JVD, sclera anicteric, NAMAN, EOMI, moist mucosa with normal structures of mouth, earrings noted LUNGS: Coarse lung sounds, however diminished sounds at b/l bases (L base now with better air entry than R),; on RA; No accessory muscle use BACK: L bandage with some blood let-through noted. No tenderness to palpation near procedural site. No erythema or increased warmth noted. HEART: RRR, normal S1 and S2 without murmur, rub or gallop.v ABDOMEN: Soft, slight tenderness to palpation on R inguinal area, nondistended, normoactive bowel sounds, no guarding, no masses. No hepatomegaly. EXTREMITIES: No peripheral edema. 2+ DP pulses, no calf tenderness PSYCHIATRIC: Cooperative. Good eye contact. Appropriate mood and affect. SKIN: Warm, dry, no rashes or lesions noted, normal capillary refill Laboratory Results - last 24 hr 05/31/17 05/31/17 05/31/17 06:27 11:17 17:52 POC Glucometer 111 137 160 05/31/17 21:50 POC Glucometer 170 Active Medications Generic Name Dose Route Start Last Admin Trade Name Eusebio PRN Reason Stop Dose Admin Albuterol Sulfate 1 amp 05/26/17 18:26 Ventolin 0.083% Nebulizer Soln - NEB Q4H PRN SHORT OF BREATH/WHEEZING Albuterol/Ipratropium 1 amp 05/29/17 13:56 05/31/17 20:57 Duoneb - NEB 1 amp RQID [facility] Administration Bisacodyl 5 mg 05/27/17 10:00 05/31/17 09:12 Dulcolax - PO 5 mg DAILY [facility] Administration Fentanyl 1 patch 05/28/17 21:16 05/31/17 22:08 Duragesic 100mcg Patch - TD 1 patch Q72H [facility] Administration Piperacillin Sod/Tazobactam 100 mls @ 200 mls/hr 05/27/17 21:00 05/31/17 20: 33 Sod 3.375 gm/ Dextrose IVPB 200 mls/hr Q6H-IV [facility] Administration Insulin Aspart 1 vial 05/26/17 22:00 05/31/17 22:32 Novolog Vial Sliding Scale - SQ Not Given ACHS [facility] Protocol Methylprednisolone Sodium Succinate 40 mg 05/30/17 10:00 05/31/17 09:12 Solu-Medrol - IVPUSH 40 mg DAILY [facility] Administration Miscellaneous 1 each 05/28/17 21:16 05/28/17 22:06 Duragesic Patch Waste TD 1 each PRN PRN Administration Oxycodone HCl 10 mg 06/01/17 10:00 Roxicodone - PO DAILY [facility] Pantoprazole Sodium 40 mg 05/27/17 10:00 05/31/17 09:12 Protonix - PO 40 mg DAILY [facility] Administration ASSESSMENT/PLAN: 56 yo M who presented for shortness of breath and was found to be hypoxic with CXR revealing LLL PNA. 1) Sepsis Secondary to Left Lower Lobe Pneumonia --Continue Zosyn 3.375 q6h --ID on board and would like one more day of ABX before d/c and switch to orals --Chest CT shows b/l pleural effusions with b/l upper lobe and right middle lobe patchy infiltrates and a minimal pericardial effusion --Pulmonology on board --S/p Thoracentesis --Pleural studies noted to be exudative --Gram stain and culture negative for 24hrs --Cytology sent --Strep pneumo negative; Legionella negative; Flu Negative; BCx negative x2 2) Acute Asthma/COPD Exacerbation with Hypoxia -Likely 2/2 infectious process with aspects of reactive airway disease -- SpO2 to maintain 02 sat >90% -Continue MEdrol 40mg IVP qDaily --Can transition to oral Prednisone with 5-day taper tomorrow --Continue Duonebs QID --Continue Albuterol q4h PRN 3) R Inguinal Hernia --2/2 to increased coughing --CT ABD showing hernia with only fat involved without any stranding noted --Surgery consult --Defer to outpatient elective repair noted --Monitor for signs of skin changes and/or increasing pain at rest 4) Lung Ca with mets to spine and pelvis --Consult Dr. Lin (hem-onc) --Next scheduled chemotherapy for 05/31/17 with last radiation 2 mo ago --Continue Fentanyl 100cg q72h --continue Oxycodone 10mg q4h PRN for breakthrough --Continue Dulcolax 5mg qDaily 5) DM --Type II --BGM --ISS due to steroid use FEN: Fluids: No fluids currently; tolerating PO Electrolyte Abnormalities: None today Nutrition: Diabetic Controlled diet PPX DVT - Heparin SQ held due to procedure. Can restart tomorrow AM GI - Protonix 40mg qDaily due to steroid use Code Status: Full code; would like to HCP Dispo: D/C tomorrow pending improvements continue Case discussed with Dr. Lazara Mcneill, DO - Internal Medicine PGY-1 Visit type - Emergency Visit Emergency Visit: No - New Patient This patient is new to me today: No - Critical Care Critical Care patient: No
[2017-06-01] MEDS: oxyCODONE HCL 5 MG TABLET PO PRN ×2 (01:44→08:08)
[2017-06-01] MEDS: PIPERACILLIN/TAZOB 3.375 GM 3.375 GM in DEXTROSE 5%-WATER - 100 ML IVPB SCH ×2 (02:02→09:29)
[2017-06-01] MEDS ORDERED: INSULIN (NOVOLOG) ASPART 100 UNITS/ML 10ML VIAL ONE (06:26)
[2017-06-01] MEDS: INSULIN SLIDING SCALE (NOVOLOG) 1 VIAL SQ SCH ×2 (07:01→12:03)
[2017-06-01] MEDS: ALBUTEROL SO4 2.5/IPRATROPIUM 0.5 INH SOL 3 ML VIAL.NEB. NEB SCH (07:40)
[2017-06-01] MEDS ORDERED: oxyCODONE HCL 5 MG TABLET ONE (08:06)
[2017-06-01] MEDS: BISACODYL 5 MG TABLET.DR (FP) PO SCH (09:28)
[2017-06-01] MEDS: methylPREDNISolone NA SUCC 40 MG/1 ML VIAL IVPUSH SCH (09:28)
[2017-06-01] MEDS: PANTOPRAZOLE 40 MG TABLET (FP) PO SCH ×2 (09:29→10:41)
[2017-06-01] MEDS ORDERED: oxyCODONE HCL 5 MG TABLET PO SCH (10:00)
--- NOTE | 2017-06-01 10:08 | PN ---
Progress Note, Physician History of Present Illness: stable no issues breathing well - Current Medication List Current Medications: Active Medications Albuterol Sulfate (Ventolin 0.083% Nebulizer Soln -) 1 amp NEB Q4H PRN PRN Reason: SHORT OF BREATH/WHEEZING Albuterol/Ipratropium (Duoneb -) 1 amp NEB RQID [facility] Last Admin: 05/31/17 20:57 Dose: 1 amp Bisacodyl (Dulcolax -) 5 mg PO DAILY [facility] Last Admin: 06/01/17 09:28 Dose: 5 mg Fentanyl (Duragesic 100mcg Patch -) 1 patch TD Q72H [facility] Last Admin: 05/31/17 22:08 Dose: 1 patch Piperacillin Sod/Tazobactam (Sod 3.375 gm/ Dextrose) 100 mls @ 200 mls/hr IVPB Q6H-IV [facility] Last Admin: 06/01/17 09:29 Dose: 200 mls/hr Insulin Aspart (Novolog Vial Sliding Scale -) 1 vial SQ ACHS [facility] PRN Reason: Protocol Last Admin: 06/01/17 07:01 Dose: Not Given Methylprednisolone Sodium Succinate (Solu-Medrol -) 40 mg IVPUSH DAILY [facility] Last Admin: 06/01/17 09:28 Dose: 40 mg Miscellaneous (Duragesic Patch Waste) 1 each TD PRN PRN Last Admin: 05/28/17 22:06 Dose: 1 each Oxycodone HCl (Roxicodone -) 10 mg PO Q4H PRN PRN Reason: PAIN LEVEL 6-10 Last Admin: 06/01/17 08:08 Dose: 10 mg Pantoprazole Sodium (Protonix -) 40 mg PO DAILY [facility] Last Admin: 06/01/17 09:29 Dose: Not Given - Objective Vital Signs: Vital Signs Temperature 98.7 F 06/01/17 06:19 Pulse Rate 116 H 06/01/17 06:19 Respiratory Rate 20 06/01/17 06:19 Blood Pressure 127/73 06/01/17 06:19 O2 Sat by Pulse Oximetry (%) 96 05/31/17 21:00 Constitutional: Yes: No Distress, Calm Cardiovascular: Yes: Regular Rate and Rhythm Respiratory: Yes: Regular, Poor Air Entry Gastrointestinal: Yes: Normal Bowel Sounds, Soft Musculoskeletal: Yes: WNL Extremities: Yes: WNL Neurological: Yes: Alert, Oriented Psychiatric: Yes: Alert, Oriented Labs: CBC, BMP 05/30/17 17:40 05/30/17 17:40 INR, PTT INR 1.00 (0.82-1.09) 05/28/17 15:30 Assessment/Plan Problem List - Problems (1) COPD exacerbation Code(s): J44.1 - CHRONIC OBSTRUCTIVE PULMONARY DISEASE W (ACUTE) EXACERBATION (2) Pneumonia Code(s): J18.9 - PNEUMONIA, UNSPECIFIED ORGANISM Qualifiers: Pneumonia type: due to unspecified organism Laterality: unspecified laterality Lung location: unspecified part of lung Qualified Code(s): J18.9 - Pneumonia, unspecified organism rt ing hernia metastatic lung cancer pleural effusion dm plan will change to oral abx rest continue current mgmt augmentin 875 mg twice a day for 7 days incnetive corine
[2017-06-01 10:47] VITALS: BP 139/58; PULSE 106; TEMP 98.8
--- NOTE | 2017-06-01 11:56 | PN ---
Progress Note (short form) - Note Progress Note: PULMONARY VSS/AFEBRILE ANICTERIC DIMINISHED LEFT BASE BREATH SOUNDS RSR BS+ NO EDEMA CYTOLOGY PENDING EXUDATIVE EFFUSION LLL Pneumonia Pleural Effusion Metastatic Lung Ca with bone mets on chemotherapy Asthma DM - continue antibiotics oral as outpatient - f/u pleural fluid results - stable post left thoracentesis - medrol changed to prednisone to be tapered as an outpatient - inhaled bronchodilators - DVT prophylaxis Janusz ALONSO MD
[2017-06-01] MEDS ORDERED: predniSONE 20 MG TABLET (UD) PO SCH (12:00)
--- NOTE | 2017-06-01 20:19 | PN ---
Teaching Attending Note Name of Resident: Jaden Mcneill ATTENDING PHYSICIAN STATEMENT I saw and evaluated the patient. I reviewed the resident's note and discussed the case with the resident. I agree with the resident's findings and plan as documented. SUBJECTIVE: OBJECTIVE: Vital Signs Period Temp Pulse Resp BP Sys/Perales Pulse Ox Last 24 Hr 98.1 F-98.8 F 102-116 16-20 127-139/58-76 96-96 Laboratory Results - last 24 hr 05/31/17 06/01/17 21:50 05:58 POC Glucometer 170 119 ASSESSMENT AND PLAN:
--- NOTE | 2017-06-04 16:12 | PATH ---
Cytology Non-Gynecological Report Patient Name: YESICA ROY [facility]. Rec. #: [id number] /Age/Gender: 1960 (Age: 56) / M Account: [id number] Location: [facility] Taken: 05/30/2017 Received: 05/30/2017 Reported: 06/04/2017 Physicians: Nadia Jacobo M.D. Carmelo Puccio, MD Specimen(s) Received A: LEFT PLEURAL FLUID B: LEFT PLEURAL FLUID Clinical History Lung cancer Final Diagnosis A & B. PLEURAL FLUID, LEFT, FOR CYTOLOGY: SATISFACTORY FOR EVALUATION. POSITIVE FOR MALIGNANT CELLS. POORLY DIFFERENTIATED CARCINOMA. Comment: Immunohistochemical stains performed and interpreted at [facility] show the malignant cells are positive for CK7 and POOJA (rare, weak), while negative for CK20 and TTF-1. Additional immunohistochemical stains performed at [place], [place] ([id number]) and interpreted at [facility] show the malignant cells are positive for JOHN ,focally for MOC-31, while negative for mesothelial markers (calretinin ,D2-40) and p40. Although the immunophenotype is non-specific, CK7 positivity favors a poorly differentiated adenocarcinoma, and compatible with patient's known history of lung adenocarcinoma. Findings discussed with Dr. Lin and Robinson. Electronically Signed Brooke Grigsby M.D. Gross Description A. Approximately 50 cc of yellow fluid received fixed in 50% alcohol. Two cytofunnels and one cellblock prepared. B. Approximately 1000 cc of yellow fluid received fresh. Two cytofunnels and one cellblock prepared.
== END 2017-06-01 12:40 | disposition home or self-care (01) | DRG 720 ==
LOC: JER 13:07 → JERBED 17:46 → J8W 19:20
PROVIDERS: ADMIT Hospitalist; ATTEND Internal Medicine
PROC: 0W9B3ZX Drainage of Left Pleural Cavity, Percutaneous Approach, Diagnostic (ICD-10-PCS; principal; 2017-05-30)
DX: A41.9 Sepsis, unspecified organism (principal); J18.9 Pneumonia, unspecified organism; J44.1 Chronic obstructive pulmonary disease with (acute) exacerbation; R09.02 Hypoxemia; C34.90 Malignant neoplasm of unspecified part of unspecified bronchus or lung; C79.51 Secondary malignant neoplasm of bone; C79.89 Secondary malignant neoplasm of other specified sites; J90 Pleural effusion, not elsewhere classified; D63.8 Anemia in other chronic diseases classified elsewhere; K40.90 Unilateral inguinal hernia, without obstruction or gangrene, not specified as recurrent; E11.9 Type 2 diabetes mellitus without complications; E83.39 Other disorders of phosphorus metabolism; E83.52 Hypercalcemia; E83.41 Hypermagnesemia; R00.0 Tachycardia, unspecified; Z87.891 Personal history of nicotine dependence
CPT/HCPCS: 36415; 71045-TC; 71046-TC; 71250-TC; 74176-TC; 76942; 80048; 80053; 81003; 82042; 82150; 82728; 82945; 82962; 83036; 83540; 83550; 83605; 83615; 83690; 83735; 83880; 83986; 84100; 84157; 84311; 84466; 85025; 85027; 85610; 86738; 87040; 87070; 87075; 87102; 87116; 87205; 87206; 87210; 87804; 87899; 88108; 88305-TC; 88341-TC; 89051; 93005; 93010; 93306-TC; 94640; 97116-GP; 97161-GP; 99284-25; J1644